=== PATIENT | female | born 1975 | race Caucasian/White ===

== ENCOUNTER 2016-08-12 08:07 | Day surgery (SDC) | payer MEDICARE, MEDICAID ==
[2016-08-12 09:06] LABS: PROTHROMBIN TIME 12.4 SEC (11.4-15.4)
[2016-08-12 09:07] LABS: PARTIAL THROMBOPLASTIN TIME 29.3 SEC (23.5-35.8)
[2016-08-12 13:08] VITALS: BP 135/79
== END 2016-08-12 13:00 | disposition home or self-care (01) ==
LOC: RAD 08:07
PROVIDERS: ATTEND Specialist
PROC: B01BYZZ Fluoroscopy of Spinal Cord using Other Contrast (ICD-10-PCS; principal; 2016-08-12)
DX: M54.16 Radiculopathy, lumbar region (principal); E87.5 Hyperkalemia; G47.30 Sleep apnea, unspecified; Z79.01 Long term (current) use of anticoagulants
CPT/HCPCS: 36415; 72132; 72265; 85610; 85730

== ENCOUNTER 2016-09-23 20:59 | Emergency (ER) | payer MEDICARE, MEDICAID ==
--- NOTE | 2016-09-23 21:26 | ER Document Report ---
ED Medical Screen (RME) - General Chief Complaint: Headache >24 hrs old Stated Complaint: HEADACHE AND NAUSEA Time seen by provider: 21:22 Mode of Arrival: Ambulatory Information source: Patient Notes: 41-year-old female presents to ED for severe pressure in her head for 2 weeks more severe for the last 4 days worse and worse each week. Nausea has been for 3 1/2 weeks. Stiff necks and life sensitive has been this week and had a spine myelogram done in 08/12/2016. She takes ibuprofen for her headaches that she took her last about 1:00; 600 mg. She states her doctor told her to come to the emergency room 2 days ago. Patient denies any fevers during this time. He states sometimes she feels cold and hot but she has not registered a fever yet. I have greeted and performed a rapid initial assessment of this patient. A comprehensive ED assessment and evaluation of the patient, analysis of test results and completion of medical decision making process will be conducted by an additional ED providers. TRAVEL OUTSIDE OF THE [place] IN LAST 30 DAYS: No - Related Data Allergies/Adverse Reactions: No Known Allergies Allergy (Unverified 01/20/16 00:35) Past Medical History - Past Medical History Cardiac Medical History: Denies: Hx Coronary Artery Disease, Hx Heart Attack, Hx Hypertension Pulmonary Medical History: Reports: Hx Pneumonia Denies: Hx Asthma, Hx Bronchitis, Hx COPD Neurological Medical History: Denies: Hx Cerebrovascular Accident, Hx Seizures Musculoskeltal Medical History: Reports Hx Arthritis - Spine and knees, Reports Hx Musculoskeletal Trauma Past Surgical History: Reports: Hx Orthopedic Surgery - Immunizations Hx Diphtheria, Pertussis, Tetanus Vaccination: Yes Physical Exam - Vital signs Vitals: Temp Pulse Resp BP Pulse Ox 99.1 F 85 16 146/86 H 98 09/23/16 21:08 09/23/16 21:08 09/23/16 21:08 09/23/16 21:08 09/23/16 21:08 Course - Vital Signs Vital signs: Temp Pulse Resp BP Pulse Ox 99.1 F 85 16 146/86 H 98 09/23/16 21:08 09/23/16 21:08 09/23/16 21:08 09/23/16 21:08 09/23/16 21:08
[2016-09-23] MEDS ORDERED: ONDANSETRON 4 MG TAB.RAPDIS PO ONE (21:27)
--- NOTE | 2016-09-23 23:39 | ER Document Report ---
ED Headache - General Mode of Arrival: Ambulatory Information source: Patient TRAVEL OUTSIDE OF THE [place] IN LAST 30 DAYS: No - HPI Patient complains to provider of: "Migraine" Patient reports: Frequent migraines, Hx chronic headaches Onset: Other - see narrative Timing: Still present Quality of pain: Pressure Associated symptoms: Nausea/vomiting Exacerbated by: Light Similar symptoms previously: Yes Recently seen / treated by doctor: Yes <SELMA MORALES - Last Filed: 09/23/16 23:40> <ADAIR GRANT - Last Filed: 09/24/16 01:14> - General Chief Complaint: Headache >24 hrs old Stated Complaint: HEADACHE AND NAUSEA Notes: Patient is a 41-year-old male that presents to the emergency department today with complaints of a headache. Patient has a history of migraine headaches but states she feels like this one is different because it is "her whole head". Patient states she has been having headaches for several days however it has been "bad for 4 days". Patient complains of photophobia as well for the last 3 days. Patient states she has been nauseated for one month. Patient also complains of neck pain. Patient denies any vomiting, fevers, chills, throat pain , sinus congestion, or abdominal pain. (SELMA MORALES) - Related Data Allergies/Adverse Reactions: No Known Allergies Allergy (Unverified 01/20/16 00:35) Past Medical History - General Information source: Patient - Social History Smoking Status: Current Every Day Smoker Cigarette use (# per day): No Chew tobacco use (# tins/day): No Frequency of alcohol use: Rare Drug Abuse: None Lives with: Family Family History: Reviewed & Not Pertinent Patient has suicidal ideation: No Patient has homicidal ideation: No Pulmonary Medical History: Reports: Hx Pneumonia Musculoskeltal Medical History: Reports Hx Arthritis - Spine and knees, Reports Hx Musculoskeletal Trauma Past Surgical History: Reports: Hx Orthopedic Surgery - Immunizations Hx Diphtheria, Pertussis, Tetanus Vaccination: Yes <SELMA MORALES - Last Filed: 09/23/16 23:40> Review of Systems - Review of Systems Constitutional: denies: Chills, Fever EENT: denies: Nose congestion, Throat pain Cardiovascular: No symptoms reported Respiratory: No symptoms reported Gastrointestinal: See HPI, Nausea. denies: Abdominal pain, Vomiting Genitourinary: No symptoms reported Female Genitourinary: No symptoms reported Musculoskeletal: See HPI, Neck pain Skin: No symptoms reported Hematologic/Lymphatic: No symptoms reported Neurological/Psychological: See HPI, Headaches - photophobia -: Yes All other systems reviewed and negative <SELMA MORALES - Last Filed: 09/23/16 23:40> Physical Exam - General General appearance: Appears well, Alert In distress: None - HEENT Head: Normocephalic, Atraumatic Eyes: Normal Conjunctiva: Normal - Respiratory Respiratory status: No respiratory distress Chest status: Nontender Breath sounds: Normal Chest palpation: Normal - Cardiovascular Rhythm: Regular Heart sounds: Normal auscultation Murmur: No - Abdominal Inspection: Normal Distension: No distension Bowel sounds: Normal Tenderness: Nontender - Extremities General upper extremity: Normal inspection, Normal ROM, Normal strength. No: Edema General lower extremity: Normal inspection, Normal ROM, Normal strength. No: Edema - Neurological Neuro grossly intact: Yes Cognition: Normal Orientation: AAOx4 [place] Coma Scale Eye Opening: Spontaneous [place] Coma Scale Verbal: Oriented [place] Coma Scale Motor: Obeys Commands Ralph Coma Scale Total: 15 Speech: Normal Cranial nerves: Normal Motor strength normal: LUE, RUE, LLE, RLE Additional motor exam normals: Equal senior game developer Sensory: Normal Knee - Reflex grade: 2 = Normal - Psychological Associated symptoms: Normal affect, Normal mood - Skin Skin Temperature: Warm Skin Moisture: Dry Skin Color: Normal <SELMA MORALES - Last Filed: 09/23/16 23:40> <ADAIR GRANT - Last Filed: 09/24/16 01:14> - Vital signs Vitals: Temp Pulse Resp BP Pulse Ox 99.1 F 85 16 146/86 H 98 09/23/16 21:08 09/23/16 21:08 09/23/16 21:08 09/23/16 21:08 09/23/16 21:08 - Neurological Notes: complains of photophobia, covering head with pillow (SELMA MORALES) Course <SELMA MORALES - Last Filed: 09/23/16 23:40> - Diagnostic Test Radiology reviewed: Reports reviewed - CT head: No acute. <ADAIR GRANT - Last Filed: 09/24/16 01:14> - Re-evaluation Re-evalutation: 09/24/16 01:10 Patient presents with one month of nausea and mild headache which is become worse in the last 3 days. Patient indicates the headache is a gripping sensation around her entire head and into the back of her neck. The patient reports that she patient has history of migraines and says this is not like her usual migraines. She is afebrile nontoxic appearing. No signs of meningismus. Well-hydrated. No focal neurologic abnormalities. Patient requesting CT imaging because this is not like any headaches that she has had in the past. Although I believe that this will be low yield will comply with patient's request. We will treat with headache cocktail and plan for discharge with follow-up PCP. (ADAIR GRANT) - Vital Signs Vital signs: Temp Pulse Resp BP Pulse Ox 99.1 F 85 16 146/86 H 98 09/23/16 21:08 09/23/16 21:08 09/23/16 21:08 09/23/16 21:08 09/23/16 21:08 Discharge <SELMA MORALES - Last Filed: 09/23/16 23:40> <ADAIR GRANT - Last Filed: 09/24/16 01:14> - Discharge Clinical Impression: Headache Qualifiers: Headache type: unspecified Headache chronicity pattern: chronic headache Intractability: not intractable Qualified Code(s): R51 - Headache Condition: Stable Disposition: HOME, SELF-CARE Instructions: Headache ([facility]), Migraine Headache ([facility]) Additional Instructions: Drink plenty fluids to stay well hydrated. Follow-up the primary provider. Return for fevers, vomiting so not to keep down fluids, or other worsening or concerning symptoms. Scribe Attestation: 09/24/16 01:12 I personally performed the services described in the documentation, reviewed and edited the documentation which was dictated to the scribe in my presence, and it accurately records my words and actions. (ADAIR GRANT) Scribe Documentation - Scribe Written by Norma:: Norma Ag, 09/24/2016 0010 acting as scribe for :: Valera <SELMA MORALES - Last Filed: 09/23/16 23:40>
[2016-09-23] MEDS ORDERED: METOCLOPRAMIDE HCL INJ/PF 10 MG/2 ML SDV IV ONE (23:40)
[2016-09-23] MEDS ORDERED: DIPHENHYDRAMINE HCL 50 MG/ML VIAL IV ONE (23:40)
[2016-09-23] MEDS ORDERED: DEXAMETHASONE SOD PHOSPHATE INJ 4 MG/1 ML VIAL IV ONE (23:40)
[2016-09-23] MEDS ORDERED: NORMAL SALINE 1000 ML 1,000 ML IV ONE (23:44)
[2016-09-24 00:24] LABS: APPEARANCE,URINE SLIGHTLY-CLOUDY; BILIRUBIN,URINE NEGATIVE (NEGATIVE); GLUCOSE, URINE NEGATIVE (NEGATIVE); KETONES,URINE NEGATIVE (NEGATIVE); LEUKOCYTE ESTERASE,URINE NEGATIVE (NEGATIVE); NITRITE,URINE NEGATIVE (NEGATIVE); PROTEIN,URINE NEGATIVE (NEGATIVE); URINE SPECIFIC GRAVITY 1.012; UROBILINOGEN,URINE NEGATIVE mg/dL (<2.0)
[2016-09-24 01:56] VITALS: BP 106/64
== END 2016-09-24 01:56 | disposition home or self-care (01) ==
LOC: ER 20:59
DX: R51 Headache (principal); R11.2 Nausea with vomiting, unspecified; H53.149 Visual discomfort, unspecified; M54.2 Cervicalgia; F17.200 Nicotine dependence, unspecified, uncomplicated
CPT/HCPCS: 99284; 96361; 96374; 96375; 81025; 81001; 70450; J1100; J1200; A9270; J2765; J7030; S0119

== ENCOUNTER → 2017-02-02 | Outpatient (CLI) | payer MEDICARE, MEDICAID ==
[2017-02-02 08:56] LABS: ABSOLUTE BASOPHILS # (AUTO) 0.1 10^3/uL (0.0-0.2); ABSOLUTE EOSINOPHILS # (AUTO) 0.1 10^3/uL (0.0-0.6); ABSOLUTE MONOCYTES (AUTO) 0.4 10^3/uL (0.1-1.4); ABSOLUTE NEUT (AUTO) 5.2 10^3/uL (1.7-8.2); BASOPHILS % (AUTO) 0.7 % (0-2); EOSINOPHILS % (AUTO) 1.3 % (0-6); HEMATOCRIT 40.6 % (36.0-47.0); HEMOGLOBIN 13.8 g/dL (12.0-15.5); HGB HCT DIFFERENCE 0.8; LYMPHOCYTES % (AUTO) 33.9 % (13-45); MEAN CORPUSCULAR HEMOGLOBIN 31.4 pg (27.0-33.4); MEAN CORPUSCULAR HGB CONC 34.1 g/dL (32.0-36.0); MEAN CORPUSCULAR VOLUME 92 fl (80-97); MONOCYTES % (AUTO) 4.4 % (3-13); RED BLOOD COUNT 4.41 10^6/uL (3.72-5.28); RED CELL DISTRIBUTION WIDTH 13.9 % (11.5-14.0); SEGMENTED NEUTROPHILS % (AUTO) 59.7 % (42-78); WHITE BLOOD COUNT 8.8 10^3/uL (4.0-10.5)
[2017-02-02 09:29] LABS: ALANINE AMINOTRANSFERASE 41 U/L (9-52); ALKALINE PHOSPHATASE 85 U/L (38-126); ANION GAP 10 (5-19); ASPARTATE AMINO TRANSFERASE 23 U/L (14-36); BILIRUBIN,DIRECT 0.3 mg/dL (0.0-0.4); BILIRUBIN,TOTAL 0.5 mg/dL (0.2-1.3); BLOOD UREA NITROGEN 11 mg/dL (7-20); CALCIUM 9.3 mg/dL (8.4-10.2); CARBON DIOXIDE 26 mmol/L (22-30); CHLORIDE 106 mmol/L (98-107); CHOLESTEROL 223.92 mg/dL (0-200); CREATININE RESULT 0.71 mg/dL (0.52-1.25); Direct HDL 30 mg/dL (>40); GLUCOSE 98 mg/dL (75-110); POTASSIUM 4.9 mmol/L (3.6-5.0); SODIUM 141.9 mmol/L (137-145); TOTAL PROTEIN 6.9 g/dL (6.3-8.2); TRIGLYCERIDES 214 mg/dL (<150)
[2017-02-02 09:41] LABS: DIRECT LDL 152 mg/dL (<100)
[2017-02-02 09:43] LABS: VLDL CHOLESTEROL 42.8 mg/dL (10-31)
[2017-02-03 15:39] LABS: A/G RATIO 1.2 (0.7-1.7); ALBUMIN 2 3.5 g/dL (2.9-4.4); ALPHA-1-GLOBULIN 2 0.2 g/dL (0.0-0.4); GAMMA GLOBULIN 0.8 g/dL (0.4-1.8); PROTEIN TOTAL SERUM 6.4 g/dL (6.0-8.5)
== END ==
LOC: OD 07:40
PROVIDERS: ATTEND Internal Medicine
DX: E78.5 Hyperlipidemia, unspecified (principal); I10 Essential (primary) hypertension; R63.4 Abnormal weight loss; Z79.899 Other long term (current) drug therapy
CPT/HCPCS: 36415; 80053; 80061; 84165; 84443; 85025

== ENCOUNTER → 2017-02-03 | Outpatient (CLI) | payer MEDICARE, MEDICAID ==
--- NOTE | 2017-02-03 09:37 | RADIOLOGY REPORT (SQ) ---
EXAM DESCRIPTION: U/S ABDOMEN LIMITED W/O DOP COMPLETED DATE/TIME: 02/03/2017 9:17 am REASON FOR STUDY: RUQ PAIN R19.01 RIGHT UPPER QUADRANT ABDOMINAL SWELLING, MASS AND LUM COMPARISON: None. TECHNIQUE: Dynamic and static grayscale images acquired of the right upper quadrant and recorded on PACS. Additional selected color Doppler and spectral images recorded. LIMITATIONS: Study limited due to acoustical interference from fat or from air in the bowel. FINDINGS: PANCREAS: Parts or all of the pancreas poorly seen secondary to acoustical interference fr om fat or from air in the bowel. LIVER: Echotexture is coarse with increased echogenicity consistent with fatty infiltration. No mass es. LIVER VASCULATURE: Normal directional flow of the main portal vein and hepatic veins. GALLBLADDER: Surgically absent. ULTRASOUND-DETECTED WEEKS'S SIGN: Not applicable. INTRAHEPATIC DUCTS AND COMMON DUCT: CBD and intrahepatic ducts normal caliber. No filling defects. INFERIOR VENA CAVA: Normal flow. AORTA: No aneurysm. RIGHT KIDNEY: Normal size. Normal echogenicity. No solid or suspicious masses. No hydronephrosis. No calcifications. PERITONEAL CAVITY AND RIGHT PLEURAL SPACE: No ascites or effusions. OTHER: No other significant finding. IMPRESSION: FATTY LIVER. PANCREAS PARTIALLY OR COMPLETELY OBSCURED. OTHERWISE NORMAL RIGHT UPPER AMARILYS DRANT ULTRASOUND. TECHNICAL DOCUMENTATION: JOB ID: [id number] [employer]- All Rights Reserved
== END ==
LOC: RAD 08:53
PROVIDERS: ATTEND Internal Medicine
DX: R19.01 Right upper quadrant abdominal swelling, mass and lump (principal); I10 Essential (primary) hypertension; E78.5 Hyperlipidemia, unspecified; R63.4 Abnormal weight loss; Z79.899 Other long term (current) drug therapy
CPT/HCPCS: 76705

== ENCOUNTER → 2017-02-09 | Outpatient (CLI) | payer MEDICARE, MEDICAID ==
--- NOTE | 2017-02-09 14:37 | RADIOLOGY REPORT (SQ) ---
EXAM DESCRIPTION: CT ABD/PELVIS WITH IV ORAL COMPLETED DATE/TIME: 02/09/2017 2:17 pm REASON FOR STUDY: ABDOMINAL PAIN R10.9 UNSPECIFIED ABDOMINAL PAIN COMPARISON: Ultrasound dated 02/03/2017 TECHNIQUE: CT scan of the abdomen and pelvis performed using helical scanning technique with dynamic intravenous contrast injection. No oral contrast. Images reviewed with lung, soft tissue, and bone windows. Reconstructed coronal and sagittal MPR images reviewed. Delayed images for evaluation of the urinary system also acquired. All images stored on PACS. All CT scanners at this facility use dose modulation, iterative reconstruction, and/or weight based d osing when appropriate to reduce radiation dose to as low as reasonably achievable (ALARA). [facility]: Dose Right [facility]: CareDose [facility]: Dose Right [facility]: Teradose 4D [facility]: [employer] CONTRAST TYPE AND DOSE: contrast/concentration: Isovue 370.00 mg/ml; Total Contrast Delivered: 90.0 ml; Total Saline Delivered: 70.0 ml RENAL FUNCTION: None required. The patient is less than 50 years old. RADIATION DOSE: Up-to-date CT equipment and radiation dose reduction techniques were employed. CTDIv ol: 9.7 - 11.2 mGy. DLP: 1077 mGy-cm.. LIMITATIONS: None. FINDINGS: LOWER CHEST: No significant findings. No nodules or infiltrates. LIVER: Liver demonstrates decreased attenuation consistent with fatty deposition. No focal liver les ions are identified. No intrahepatic biliary dilatation. The portal and hepatic veins are patent. SPLEEN: Normal size. No focal lesions. PANCREAS: No masses. No significant calcifications. No adjacent inflammation or peripancreatic fluid collections. Pancreatic duct not dilated. GALLBLADDER: Surgically absent. ADRENAL GLANDS: No significant masses or asymmetry. RIGHT KIDNEY AND URETER: No solid masses. No significant calcifications. No hydronephrosis or hyd roureter. LEFT KIDNEY AND URETER: No solid masses. No significant calcifications. No hydronephrosis or hydr oureter. AORTA AND VESSELS: No aneurysm. No dissection. Renal arteries, SMA, celiac without stenosis. RETROPERITONEUM: No retroperitoneal adenopathy, hemorrhage or masses. BOWEL AND PERITONEAL CAVITY: No masses or inflammatory changes. No free fluid or peritoneal masses. APPENDIX: Normal. PELVIS: No mass. No free fluid. Normal bladder. ABDOMINAL WALL: No masses. No hernias. BONES: No significant or acute findings. OTHER: No other significant finding. IMPRESSION: 1. No acute abnormality identified within the abdomen pelvis. 2. Hepatic steatosis. No focal liver lesions. TECHNICAL DOCUMENTATION: JOB ID: [id number] Quality ID # [id number]: Final reports with documentation of one or more dose reduction techniques (e.g., Au tomated exposure control, adjustment of the mA and/or kV according to patient size, use of iterative reconstruction technique) 2010 [employer]- All Rights Reserved
== END ==
LOC: RAD 11:43
PROVIDERS: ATTEND Family Medicine Geriatric Medicine
DX: R10.9 Unspecified abdominal pain (principal)
CPT/HCPCS: 74177

== ENCOUNTER → 2017-02-18 | Outpatient (CLI) | payer MEDICARE, MEDICAID ==
[2017-02-18 12:32] LABS: LIPASE 105.4 U/L (23-300)
== END ==
LOC: OD 11:25
PROVIDERS: ATTEND Family Medicine Geriatric Medicine
DX: R10.9 Unspecified abdominal pain (principal); Z79.899 Other long term (current) drug therapy
CPT/HCPCS: 36415; 82150; 83690

== ENCOUNTER 2017-08-09 14:37 | Emergency (ER) | payer MEDICARE, MEDICAID ==
--- NOTE | 2017-08-09 16:10 | ER Document Report ---
ED Medical Screen (RME) - General Chief Complaint: Vaginal Bleeding Stated Complaint: VAGINAL BLEEDING Time Seen by Provider: 08/09/17 15:57 Mode of Arrival: Ambulatory Information source: Patient Notes: Patient is a 42 year old female presenting to the emergency department complaining of heavy vaginal bleeding onset 4 days ago. Patient states that her last menstrual cycle was around 2016, stopped for 2 days and then came back. Patient states that she is bleeding through pads every 20 minutes. Patient states that she called her OB and they told her to come into the emergency department. Patient also complains of urinary frequency and abdominal cramps. Patient denies any recent intercourse. Patient states that she had a tubal ligation. TRAVEL OUTSIDE OF THE [place] IN LAST 30 DAYS: No - Related Data Allergies/Adverse Reactions: No Known Allergies Allergy (Verified 08/09/17 14:44) Past Medical History - General Information source: Patient - Social History Chew tobacco use (# tins/day): No Frequency of alcohol use: Rare Drug Abuse: None - Past Medical History Cardiac Medical History: Denies: Hx Coronary Artery Disease, Hx Heart Attack, Hx Hypertension Pulmonary Medical History: Reports: Hx Pneumonia Denies: Hx Asthma, Hx Bronchitis, Hx COPD Neurological Medical History: Denies: Hx Cerebrovascular Accident, Hx Seizures Renal/ Medical History: Denies: Hx Peritoneal Dialysis Musculoskeltal Medical History: Reports Hx Arthritis - Spine and knees, Reports Hx Musculoskeletal Trauma Past Surgical History: Reports: Hx Orthopedic Surgery - 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 - Immunizations Hx Diphtheria, Pertussis, Tetanus Vaccination: Yes Review of Systems - Review of Systems Constitutional: No symptoms reported EENT: No symptoms reported Cardiovascular: No symptoms reported Respiratory: No symptoms reported Gastrointestinal: No symptoms reported Genitourinary: See HPI, Frequency Female Genitourinary: See HPI, Vaginal bleeding Musculoskeletal: No symptoms reported Skin: No symptoms reported Hematologic/Lymphatic: No symptoms reported Neurological/Psychological: No symptoms reported -: Yes All other systems reviewed and negative Physical Exam - Vital signs Vitals: Temp Pulse Resp BP Pulse Ox 98.6 F 107 H 18 139/89 H 95 08/09/17 14:48 08/09/17 14:48 08/09/17 14:48 08/09/17 14:48 08/09/17 14:48 - Notes Notes: GENERAL: Alert, interacts well. No acute distress. HEAD: Normocephalic, atraumatic. EYES: Pupils equal, round, and reactive to light. Extraocular movements intact. ENT: Oral mucosa moist, tongue midline. NECK: Full range of motion. Supple. Trachea midline. LUNGS: Clear to auscultation bilaterally, no wheezes, rales, or rhonchi. No respiratory distress. HEART: Regular rate and rhythm. No murmurs, gallops, or rubs. ABDOMEN: Soft, non-tender. Non-distended. EXTREMITIES: Moves all 4 extremities spontaneously. NEUROLOGICAL: Alert and oriented x3. Normal speech. PSYCH: Normal affect, normal mood. SKIN: Warm, dry, normal turgor. No rashes or lesions noted. Course - Vital Signs Vital signs: Temp Pulse Resp BP Pulse Ox 98.6 F 107 H 18 139/89 H 95 08/09/17 14:48 08/09/17 14:48 08/09/17 14:48 08/09/17 14:48 08/09/17 14:48 Scribe Documentation - Scribe Written by Norma:: Norma Campbell, 08/09/2017 16:23 acting as scribe for :: Roger
[2017-08-09 16:59] LABS: APPEARANCE,URINE SLIGHTLY-CLOUDY; BILIRUBIN,URINE NEGATIVE (NEGATIVE); COLOR,URINE AMBER; GLUCOSE, URINE NEGATIVE (NEGATIVE); KETONES,URINE NEGATIVE (NEGATIVE); LEUKOCYTE ESTERASE,URINE NEGATIVE (NEGATIVE); NITRITE,URINE NEGATIVE (NEGATIVE); PROTEIN,URINE 100 mg/dL (NEGATIVE); URINE SPECIFIC GRAVITY 1.031
[2017-08-09] MEDS ORDERED: ACETAMINOPHEN 325 MG TABLET PO ONE (17:26)
[2017-08-09 17:27] LABS: ABSOLUTE BASOPHILS # (AUTO) 0.2 10^3/uL (0.0-0.2); ABSOLUTE EOSINOPHILS # (AUTO) 0.1 10^3/uL (0.0-0.6); ABSOLUTE LYMPHOCYTES (AUTO) 3.8 10^3/uL (0.5-4.7); ABSOLUTE MONOCYTES (AUTO) 0.6 10^3/uL (0.1-1.4); ABSOLUTE NEUT (AUTO) 7.8 10^3/uL (1.7-8.2); BASOPHILS % (AUTO) 1.4 % (0-2); EOSINOPHILS % (AUTO) 0.9 % (0-6); HEMATOCRIT 40.1 % (36.0-47.0); HEMOGLOBIN 13.7 g/dL (12.0-15.5); LYMPHOCYTES % (AUTO) 30.5 % (13-45); MEAN CORPUSCULAR HEMOGLOBIN 30.4 pg (27.0-33.4); MEAN CORPUSCULAR HGB CONC 34.1 g/dL (32.0-36.0); MEAN CORPUSCULAR VOLUME 89 fl (80-97); MONOCYTES % (AUTO) 4.8 % (3-13); PLATELET COUNT 294 10^3/uL (150-450); RED CELL DISTRIBUTION WIDTH 14.5 % (11.5-14.0); SEGMENTED NEUTROPHILS % (AUTO) 62.4 % (42-78); TOTAL CELLS COUNTED % (AUTO) 100 %; WHITE BLOOD COUNT 12.5 10^3/uL (4.0-10.5)
[2017-08-09 17:42] LABS: ALANINE AMINOTRANSFERASE 26 U/L (9-52); ALKALINE PHOSPHATASE 73 U/L (38-126); ANION GAP 7 (5-19); ASPARTATE AMINO TRANSFERASE 19 U/L (14-36); BILIRUBIN,DIRECT 0.2 mg/dL (0.0-0.4); BILIRUBIN,TOTAL 0.3 mg/dL (0.2-1.3); BLOOD UREA NITROGEN 14 mg/dL (7-20); CALCIUM 9.1 mg/dL (8.4-10.2); CARBON DIOXIDE 25 mmol/L (22-30); CHLORIDE 104 mmol/L (98-107); GLUCOSE 71 mg/dL (75-110); POTASSIUM 4.2 mmol/L (3.6-5.0); SODIUM 136.1 mmol/L (137-145); TOTAL PROTEIN 6.8 g/dL (6.3-8.2)
--- NOTE | 2017-08-09 19:47 | ER Document Report ---
ED General - General Chief Complaint: Vaginal Bleeding Stated Complaint: VAGINAL BLEEDING Time Seen by Provider: 08/09/17 15:57 Mode of Arrival: Ambulatory Notes: Patient is a 42-year-old female without past medical history who presents with several days of heavy vaginal bleeding. Patient states that she is bleeding through approximate 1 pad every 1-2 hours. She states that she contacted her OB [facility] office and was referred to the emergency department. She denies any history of similar symptoms in the past. She notes that she has irregular menstrual cycles but has never bled to this degree. She does note an associated dull, cramping, intermittent lower abdominal pain. Nothing improves or worsens her symptoms. She denies any abdominal trauma. No fever or constitutional symptoms. No lightheadedness or syncope. TRAVEL OUTSIDE OF THE [place] IN LAST 30 DAYS: No - Related Data Allergies/Adverse Reactions: No Known Allergies Allergy (Verified 08/09/17 14:44) Past Medical History - General Information source: Patient - Social History Smoking Status: Current Every Day Smoker Chew tobacco use (# tins/day): No Frequency of alcohol use: Rare Drug Abuse: None Lives with: Alone Family History: Reviewed & Not Pertinent Patient has suicidal ideation: No Patient has homicidal ideation: No - Past Medical History Cardiac Medical History: Denies: Hx Coronary Artery Disease, Hx Heart Attack, Hx Hypertension Pulmonary Medical History: Reports: Hx Pneumonia Denies: Hx Asthma, Hx Bronchitis, Hx COPD Neurological Medical History: Denies: Hx Cerebrovascular Accident, Hx Seizures Renal/ Medical History: Denies: Hx Peritoneal Dialysis Musculoskeltal Medical History: Reports Hx Arthritis - Spine and knees, Reports Hx Musculoskeletal Trauma Past Surgical History: Reports: Hx Orthopedic Surgery - 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 HENT: Negative for sore throat. Eyes: Negative for visual changes. Cardiovascular: Negative for chest pain. Respiratory: Negative for shortness of breath. Gastrointestinal: Negative for abdominal pain, vomiting or diarrhea. Genitourinary: Positive for vaginal bleeding Musculoskeletal: Negative for back pain. Skin: Negative for rash. Neurological: Negative for headaches, weakness or numbness. 10 point ROS negative except as marked above and in HPI. Physical Exam - Vital signs Vitals: Temp Pulse Resp BP Pulse Ox 98.6 F 107 H 18 139/89 H 95 08/09/17 14:48 08/09/17 14:48 08/09/17 14:48 08/09/17 14:48 08/09/17 14:48 Interpretation: Tachycardic Notes: PHYSICAL EXAMINATION: GENERAL: Well-appearing, well-nourished and in no acute distress. HEAD: Atraumatic, normocephalic. EYES: Pupils equal round and reactive to light, extraocular movements intact, sclera anicteric, conjunctiva are normal. ENT: nares patent, oropharynx clear without exudates. Moist mucous membranes. NECK: Normal range of motion, supple without lymphadenopathy LUNGS: Breath sounds clear to auscultation bilaterally and equal. No wheezes rales or rhonchi. HEART: Regular rate and rhythm without murmurs ABDOMEN: Soft, nontender, normoactive bowel sounds. No guarding, no rebound. No masses appreciated. EXTREMITIES: Normal range of motion, no pitting or edema. No cyanosis. NEUROLOGICAL: No focal neurological deficits. Moves all extremities spontaneously and on command. PSYCH: Normal mood, normal affect. SKIN: Warm, Dry, normal turgor, no rashes or lesions noted. Course - Re-evaluation Re-evalutation: 08/09/17 19:46 Presentation is most consistent with dysfunctional uterine bleeding and otherwise well-appearing patient. Her hemoglobin was within normal limits. She is not . No tachycardia or hypotension. Examination is otherwise unremarkable. She denies bleeding through more than 2 pads an hour at any point in time. No indication for ultrasound at this time based on benign exam, vitals and laboratories. Transvaginal ultrasound obtained at patient's request. Awaiting results. 08/09/17 21:41 Transvaginal ultrasound is unremarkable without any evidence of a mass. Patient will be started on oral control pills to help discontinue the bleeding. She has been encouraged to follow-up with [facility]. At this time will discharge with return precautions and follow-up recommendations. Verbal discharge instructions given a the bedside and opportunity for questions given. Medication warnings reviewed. Patient is in agreement with this plan and has verbalized understanding of return precautions and the need for primary care follow-up in the next 24-72 hours. - Vital Signs Vital signs: Temp Pulse Resp BP Pulse Ox 98.4 F 91 18 120/84 96 08/09/17 20:41 08/09/17 22:39 08/09/17 22:39 08/09/17 22:39 08/09/17 22:39 - Laboratory Result Diagrams: 08/09/17 17:13 08/09/17 17:13 Laboratory results interpreted by me: 08/09/17 08/09/17 08/09/17 16:40 17:13 17:13 WBC 12.5 H RDW 14.5 H Sodium 136.1 L Glucose 71 L Urine Protein 100 H Urine Blood LARGE H Urine Urobilinogen 2.0 H - Diagnostic Test Radiology reviewed: Reports reviewed Discharge - Discharge Clinical Impression: Dysfunctional uterine bleeding, Lower abdominal pain Condition: Good Disposition: HOME, SELF-CARE Additional Instructions: You were seen today for dysfunctional uterine bleeding. This is when you have vaginal bleeding and abdominal cramping off of your normal menstrual cycle. You have been started on control pills to help regulate your cycle and control your symptoms. You need to follow-up with [facility] or your primary care physician the next 1-3 days. Return immediately if you worsening pain, you began bleeding through more than 2 pads per hour for more than 3 hours, you pass out, have persistent vomiting, develop a fever greater than 100.4F, or any other symptoms that are concerning to you. Prescriptions: Norgestimate-Ethinyl Estradiol [Sprintec 28 Day Tablet] 1 tab PO ASDIR PRN #2 packet PRN Reason:
--- NOTE | 2017-08-09 21:15 | RADIOLOGY REPORT (SQ) ---
EXAM DESCRIPTION: U/S NON OB PEL TV W/DOPPLER COMPLETED DATE/TIME: 08/09/2017 8:49 pm REASON FOR STUDY: dysfunctional uterine bleeding COMPARISON: None. TECHNIQUE: Dynamic and static grayscale images acquired of the pelvis via transvaginal approach and recorded on PACS. Additional selected color Doppler and spectral images recorded. LIMITATIONS: None. FINDINGS: UTERUS: Contour normal. No mass. ENDOMETRIAL STRIPE: No focal or generalized thickening. No masses. CERVIX: No nabothian cysts. RIGHT OVARY: Ovary not visualized. LEFT OVARY: Ovary not visualized. FREE FLUID: None noted. OTHER: No other significant finding. MEASUREMENTS: UTERUS: 8 x 5 x 7 cm ENDOMETRIAL STRIPE: 5 mm RIGHT OVARY: Not visualized. LEFT OVARY: Not visualized. IMPRESSION: 1. Normal appearance of the uterus and endometrium and cervix. 2. Ovaries not seen. TECHNICAL DOCUMENTATION: JOB ID: [id number] [employer]- All Rights Reserved
[2017-08-09] MEDS ORDERED: ONDANSETRON ODT 4 MG TAB (6 TAB/ER DISP) PO PRN (21:49)
[2017-08-09 22:41] VITALS: BP 120/84
== END 2017-08-09 22:39 | disposition home or self-care (01) ==
LOC: ER 14:37
DX: N93.8 Other specified abnormal uterine and vaginal bleeding (principal); R10.30 Lower abdominal pain, unspecified; R00.0 Tachycardia, unspecified; F17.200 Nicotine dependence, unspecified, uncomplicated
CPT/HCPCS: 99284; 36415; 84703; 85025; 80053; 81001; 76830; 93976; A9270

== ENCOUNTER 2017-11-02 18:28 | Emergency (ER) | payer MEDICARE, MEDICAID ==
--- NOTE | 2017-11-02 19:24 | ER Document Report ---
ED Medical Screen (RME) - General Chief Complaint: Shortness Of Breath Stated Complaint: SWELLING Time Seen by Provider: 11/02/17 19:20 Notes: Patient complains of worsening fatigue, weakness, edema, and shortness of breath. TRAVEL OUTSIDE OF THE [place] IN LAST 30 DAYS: No - Related Data Allergies/Adverse Reactions: No Known Allergies Allergy (Verified 11/02/17 19:03) Past Medical History - Social History Chew tobacco use (# tins/day): No Frequency of alcohol use: Rare - Past Medical History Cardiac Medical History: Denies: Hx Coronary Artery Disease, Hx Heart Attack, Hx Hypertension Pulmonary Medical History: Reports: Hx Pneumonia Denies: Hx Asthma, Hx Bronchitis, Hx COPD Neurological Medical History: Denies: Hx Cerebrovascular Accident, Hx Seizures Renal/ Medical History: Denies: Hx Peritoneal Dialysis Musculoskeltal Medical History: Reports Hx Arthritis - Spine and knees, Reports Hx Musculoskeletal Trauma Past Surgical History: Reports: Hx Orthopedic Surgery - 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
[2017-11-02 20:07] LABS: ABSOLUTE BASOPHILS # (AUTO) 0.1 10^3/uL (0.0-0.2); ABSOLUTE EOSINOPHILS # (AUTO) 0.1 10^3/uL (0.0-0.6); ABSOLUTE LYMPHOCYTES (AUTO) 3.1 10^3/uL (0.5-4.7); ABSOLUTE MONOCYTES (AUTO) 0.5 10^3/uL (0.1-1.4); ABSOLUTE NEUT (AUTO) 7.8 10^3/uL (1.7-8.2); EOSINOPHILS % (AUTO) 1.2 % (0-6); HEMATOCRIT 39.7 % (36.0-47.0); HEMOGLOBIN 13.6 g/dL (12.0-15.5); LYMPHOCYTES % (AUTO) 26.9 % (13-45); MEAN CORPUSCULAR HEMOGLOBIN 30.1 pg (27.0-33.4); MEAN CORPUSCULAR HGB CONC 34.3 g/dL (32.0-36.0); MEAN CORPUSCULAR VOLUME 88 fl (80-97); MONOCYTES % (AUTO) 4.3 % (3-13); PLATELET COUNT 350 10^3/uL (150-450); RED BLOOD COUNT 4.51 10^6/uL (3.72-5.28); RED CELL DISTRIBUTION WIDTH 14.8 % (11.5-14.0); SEGMENTED NEUTROPHILS % (AUTO) 66.6 % (42-78); TOTAL CELLS COUNTED % (AUTO) 100 %; WHITE BLOOD COUNT 11.7 10^3/uL (4.0-10.5)
[2017-11-02 20:24] LABS: APPEARANCE,URINE CLOUDY; BILIRUBIN,URINE SMALL (NEGATIVE); CALCIUM OXALATE CRYSTALS,URINE TOO NUMEROUS TO CNT /HPF; GLUCOSE, URINE NEGATIVE (NEGATIVE); KETONES,URINE TRACE mg/dL (NEGATIVE); LEUKOCYTE ESTERASE,URINE TRACE (NEGATIVE); NITRITE,URINE NEGATIVE (NEGATIVE); PROTEIN,URINE NEGATIVE (NEGATIVE); URINE SPECIFIC GRAVITY 1.027
--- NOTE | 2017-11-02 20:25 | RADIOLOGY REPORT (SQ) ---
EXAM DESCRIPTION: CHEST 2 VIEWS COMPLETED DATE/TIME: 11/02/2017 8:03 pm REASON FOR STUDY: sob COMPARISON: None. TECHNIQUE: Frontal and lateral radiographic views of the chest acquired. NUMBER OF VIEWS: Two view. LIMITATIONS: None. FINDINGS: LUNGS AND PLEURA: No opacities, masses or pneumothorax. No pleural effusion. MEDIASTINUM AND HILAR STRUCTURES: No masses or contour abnormalities. HEART AND VASCULAR STRUCTURES: Heart normal size. No evidence for failure. BONES: No acute findings. HARDWARE: Epidural spinal leads in place. OTHER: No other significant finding. IMPRESSION: NO SIGNIFICANT RADIOGRAPHIC FINDING IN THE CHEST. TECHNICAL DOCUMENTATION: JOB ID: [id number] [employer]- All Rights Reserved Reading location - IP/workstation name: [email or web address]
[2017-11-02 20:30] LABS: ALANINE AMINOTRANSFERASE 34 U/L (9-52); ALBUMIN 4.1 g/dL (3.5-5.0); ALKALINE PHOSPHATASE 77 U/L (38-126); ANION GAP 11 (5-19); ASPARTATE AMINO TRANSFERASE 22 U/L (14-36); BILIRUBIN,DIRECT 0.3 mg/dL (0.0-0.4); BILIRUBIN,TOTAL 0.3 mg/dL (0.2-1.3); BLOOD UREA NITROGEN 9 mg/dL (7-20); CALCIUM 9.6 mg/dL (8.4-10.2); CARBON DIOXIDE 28 mmol/L (22-30); CHLORIDE 101 mmol/L (98-107); GLUCOSE 92 mg/dL (75-110); POTASSIUM 4.2 mmol/L (3.6-5.0); SODIUM 139.5 mmol/L (137-145); TOTAL PROTEIN 7.1 g/dL (6.3-8.2)
[2017-11-02 20:32] LABS: COLOR,URINE YELLOW
[2017-11-02] MEDS ORDERED: FUROSEMIDE 40 MG TABLET PO ONE (22:18)
[2017-11-02 23:03] LABS: FREE T4 (FREE THYROXINE) 0.94 ng/dL (0.78-2.19)
--- NOTE | 2017-11-02 23:16 | ER Document Report ---
ED General - General Chief Complaint: Shortness Of Breath Stated Complaint: SWELLING Time Seen by Provider: 11/02/17 19:20 Notes: Patient is a 42-year-old female presents with complaints of edema into her lower extremities as well as just felt weak and will be short of breath at times. Patient says that she had similar symptoms in the past and was prescribed Lasix by her physician. She said that was over a year ago. She denies any chest pain. She denies any fevers. She denies any focal weakness or numbness. She she is a smoker. She does not take control. She does take chronic pain medicine for chronic back pain as well as Lyrica due to neuropathy into her feet and legs. She says she does not wear compression hose because of the neuropathy in her feet. She denies a history of thyroid issues. She denies any recent surgeries. TRAVEL OUTSIDE OF THE [place] IN LAST 30 DAYS: No - Related Data Allergies/Adverse Reactions: No Known Allergies Allergy (Verified 11/02/17 19:03) Past Medical History - Social History Smoking Status: Current Every Day Smoker Chew tobacco use (# tins/day): No Frequency of alcohol use: Rare Drug Abuse: None Family History: Reviewed & Not Pertinent Patient has suicidal ideation: No Patient has homicidal ideation: No - Past Medical History Cardiac Medical History: Denies: Hx Coronary Artery Disease, Hx Heart Attack, Hx Hypertension Pulmonary Medical History: Reports: Hx Pneumonia Denies: Hx Asthma, Hx Bronchitis, Hx COPD Neurological Medical History: Denies: Hx Cerebrovascular Accident, Hx Seizures Renal/ Medical History: Denies: Hx Peritoneal Dialysis Musculoskeltal Medical History: Reports Hx Arthritis - Spine and knees, Reports Hx Musculoskeletal Trauma Past Surgical History: Reports: Hx Orthopedic Surgery - 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 Denies recent illness. EENT: Denies eye, ear, throat, or mouth pain or symptoms. Denies nasal or sinus congestion. CARDIOVASCULAR: Denies chest pain. RESPIRATORY: Denies cough, cold, or chest congestion. Denies shortness of breath, difficulty breathing, or wheezing. GASTROINTESTINAL: Denies abdominal pain. Denies nausea, vomiting, or diarrhea. Denies constipation. Last BM: GENITOURINARY: Denies difficulty urinating, painful urination, burning, frequency, or blood in urine. MUSCULOSKELETAL: Pain in feet with edema. SKIN: Denies rash or skin lesions. NEUROLOGICAL: Denies altered mental status or loss of consciousness. Denies headache. Denies weakness or paralysis or loss of use of either side. Denies problems with gait or speech. Denies sensory or motor loss. ALL OTHER SYSTEMS REVIEWED AND NEGATIVE. Physical Exam - Vital signs Vitals: Temp Pulse Resp BP Pulse Ox 98.7 F 103 H 14 139/84 H 96 11/02/17 18:39 11/02/17 18:39 11/02/17 18:39 11/02/17 18:39 11/02/17 18:39 - Notes Notes: General Appearance: Well nourished, alert, cooperative, no acute distress, mild obvious discomfort. Vitals: reviewed, See vital signs table. Head: no swelling or tenderness to the head Eyes: PERRL, EOMI, Conjuctiva clear Mouth: No decreasd moisture Neck: Supple, no neck tenderness, No thyromegaly Lungs: No wheezing, No rales, No rhonci, No accessory muscle use, good air exchange bilaterally. Heart: Normal rate, Regular rythm, No murmur, no rub Abdomen: Normal BS, soft, No rigidity, No abdominal tenderness, No guarding, no rebound, no abdominal masses, no organomegaly Extremities: strength 5/5 in all extremities, good pulses in all extremities, no swelling or tenderness in the extremities, large amount of pitting pedal edema that is sequestered to the feet. She does not have much edema beyond the feet. It appears very gravity dependent. Skin: warm, dry, appropriate color, no rash Neuro: speech clear, oriented x 3, normal affect, responds appropriately to questions. Course - Re-evaluation Re-evalutation: 11/02/17 23:53 Patient looks well. Feel patient safe to be discharged home. I do not suspect DVT as patient denies any risk factors for DVT and all her swelling and edema is in the feet themselves. She does not have pain into the remainder of her legs. Her edema is equal bilaterally in both feet. This seems more consistent with gravity dependent edema. She says she cannot wear compression stockings because of her neuropathy. She has been on Lasix in the past. Will place her back on Lasix and talked her length about the importance of keeping her feet elevated as often as possible. Her TSH was just slightly elevated. Her free T4 is normal. Informed her she should have her TSH rechecked by her primary care doctor next week when she follows up. Encouraged her return to ER if she has chest pain, difficulty breathing, worsening leg edema, or she feels unwell. Patient agrees with plan will be discharged home. Dictation of this chart was performed using voice recognition software; therefore, there may be some unintended grammatical errors. - Vital Signs Vital signs: Temp Pulse Resp BP Pulse Ox 98.7 F 91 19 127/83 H 100 11/02/17 18:39 11/02/17 23:11 11/02/17 23:11 11/02/17 23:11 11/02/17 23:11 - Laboratory Result Diagrams: 11/02/17 19:40 11/02/17 19:40 Laboratory results interpreted by me: 11/02/17 11/02/17 11/02/17 19:40 19:40 19:40 WBC 11.7 H RDW 14.8 H TSH 5.60 H Urine Ketones TRACE H Urine Bilirubin SMALL H Urine Urobilinogen 4.0 H Ur Leukocyte Esterase TRACE H Discharge - Discharge Clinical Impression: Pedal edema Condition: Good Disposition: HOME, SELF-CARE Additional Instructions: Please keep your legs elevated as often as possible to help prevent worsening edema in your feet. please follow up closely with your doctor in 5-7 days for reevaluation. Your TSH level was just mildly elevated, but your free T4 was normal. Please have your primary care doctor recheck your TSH. Return to the ER immediately if you develop chest pain, difficulty breathing, worsening leg swelling, or feel unwell. Prescriptions: Furosemide [Lasix 20 mg Tablet] 20 mg PO BID #20 tablet
[2017-11-02 23:17] LABS: THYROID STIMULATING HORMONE 5.6 uIU/mL (0.47-4.68)
[2017-11-03 00:03] VITALS: BP 127/79
--- NOTE | 2017-11-03 07:56 | EKG REPORT ---
SEVERITY:- NORMAL ECG - SINUS RHYTHM : Confirmed by: Philipp Harrison MD 03-Nov-2017 07:55:30
== END 2017-11-03 00:03 | disposition home or self-care (01) ==
LOC: ER 18:28
DX: R60.0 Localized edema (principal); G57.93 Unspecified mononeuropathy of bilateral lower limbs; R94.6 Abnormal results of thyroid function studies; R53.1 Weakness; R06.02 Shortness of breath; G62.9 Polyneuropathy, unspecified; G89.29 Other chronic pain; F17.200 Nicotine dependence, unspecified, uncomplicated; Z79.899 Other long term (current) drug therapy
CPT/HCPCS: 93005; 99285; 36415; 84439; 84443; 85025; 81025; 80053; 81001; 84484; 83880; 71046; 93010; A9270

== ENCOUNTER 2017-12-28 19:21 | Inpatient (IN) | payer MEDICARE, MEDICAID ==
[2017-12-28] MEDS ORDERED: NORMAL SALINE 1000 ML 1,000 ML IV ONE (20:27)
[2017-12-28] MEDS ORDERED: METHYLPREDNISOLONE INJ 125 MG/2 ML SDV IV ONE (20:27)
[2017-12-28] MEDS ORDERED: KETOROLAC TROMETHAMINE INJ/PF 30 MG/1 ML SDV IV ONE (20:27)
[2017-12-28] MEDS ORDERED: CEFTRIAXONE 1 GM/D5W RTU 1 GM/50 ML RTUPB IV ONE (20:28)
--- NOTE | 2017-12-28 20:28 | ER Document Report ---
ED General <PEGGY GALLAGHER - Last Filed: 12/29/17 03:15> - General Mode of Arrival: Ambulatory Information source: Patient TRAVEL OUTSIDE OF THE [place] IN LAST 30 DAYS: No <DONATO HORNER - Last Filed: 12/29/17 22:10> - General Chief Complaint: Sore Throat Stated Complaint: SORE THROAT Time Seen by Provider: 12/28/17 20:04 Notes: Patient is a 42 year old female with chronic back pain, depression was sent to the emergency department from urgent care for low oxygen saturation. Patient states she went to urgent care for worsening throat pain onset 2 days ago. She was diagnosed with strep throat and given a dose and prescription of 875 Amoxicilin. At bedside patient states she has been extremely drowsy today, stating she could fall asleep anywhere. She states she took 2 tablets of 30mg Oxycodone for her chronic back pain around 1400 further stating Oxycodone does not normally make her drowsy. She also complains of headaches, fevers, and decreased fluid intake due to pain. She denies any shortness of breath. Patient does not use any O2 at home. At bedside patient is currently on 2L of nasal cannula. Patient is currently prescribed 125 tablets of 15 mg Oxycodone. (DONATO HORNER) - Related Data Allergies/Adverse Reactions: No Known Allergies Allergy (Verified 12/29/17 08:43) Past Medical History - General Information source: Patient - Social History Smoking Status: Current Every Day Smoker Cigarette use (# per day): Yes - 1/2 a pack a day Chew tobacco use (# tins/day): No Frequency of alcohol use: Rare Drug Abuse: None Family History: Reviewed & Not Pertinent Patient has suicidal ideation: No Patient has homicidal ideation: No Pulmonary Medical History: Reports: Hx Pneumonia Musculoskeltal Medical History: Reports Hx Arthritis - Spine and knees, Reports Hx Musculoskeletal Trauma Past Surgical History: Reports: Hx Orthopedic Surgery - 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 denies: Short of breath Gastrointestinal: See HPI, Poor fluid intake Genitourinary: No symptoms reported Female Genitourinary: No symptoms reported Musculoskeletal: No symptoms reported Skin: No symptoms reported Hematologic/Lymphatic: No symptoms reported Neurological/Psychological: See HPI, Headaches -: Yes All other systems reviewed and negative <EVENSDONATO - Last Filed: 12/29/17 22:10> Physical Exam - General General appearance: Alert, Other - Appears drowsy In distress: None - HEENT Head: Normocephalic, Atraumatic Eyes: Normal Conjunctiva: Normal Extraocular movements intact: Yes Pupils: PERRL Pharynx: Erythema, Uvular edema Neck: Normal - Respiratory Respiratory status: No respiratory distress Chest status: Nontender Breath sounds: Normal Chest palpation: Normal - Cardiovascular Rhythm: Regular Heart sounds: Normal auscultation Murmur: No Friction rub: No Gallop: None auscultated - Abdominal Inspection: Normal Distension: No distension Bowel sounds: Normal Tenderness: Nontender - Back Back: Normal - Extremities General upper extremity: Normal ROM General lower extremity: Normal ROM - Neurological Neuro grossly intact: Yes Cognition: Normal Orientation: AAOx4 Rainier Coma Scale Eye Opening: Spontaneous Ralph Coma Scale Verbal: Oriented Rainier Coma Scale Motor: Obeys Commands Ralph Coma Scale Total: 15 Speech: Normal - Psychological Associated symptoms: Normal affect, Normal mood - Skin Skin Temperature: Warm Skin Moisture: Dry Skin Color: Other - First-degree sunburn across the chest. <DONATO HORNER - Last Filed: 12/29/17 22:10> - Vital signs Vitals: Temp Pulse Resp BP Pulse Ox 100.6 F H 98 20 133/72 H 90 L 12/28/17 19:40 12/28/17 19:40 12/28/17 19:40 12/28/17 19:40 12/28/17 19:40 Course - Laboratory Result Diagrams: 12/28/17 21:15 12/28/17 21:15 - Diagnostic Test Radiology reviewed: Reports reviewed - CTA chest does not show pulmonary emboli , but shows a right-sided lung pneumonia pattern. - Consults Dr. Kline Time consulted: 03:10 Consulted provider: will come to ER <PEGGY GALLAGHER - Last Filed: 12/29/17 03:15> - Laboratory Result Diagrams: 12/29/17 06:36 12/29/17 06:36 <DONATO HORNER - Last Filed: 12/29/17 22:10> - Re-evaluation Re-evalutation: 12/28/17 22:01 At this time the patient states she feels much better, she feels more awake. She states that her breathing feels completely normal her. Her room air pulse ox is 90% at this time. I will obtain an arterial blood gas to at least have a baseline for this patient. (PEGGY GALLAGHER) - Vital Signs Vital signs: Temp Pulse Resp BP Pulse Ox 98.3 F 94 17 118/52 L 97 12/29/17 19:30 12/29/17 19:50 12/29/17 19:50 12/29/17 19:30 12/29/17 19:50 - Laboratory Laboratory results interpreted by me: 12/28/17 12/28/17 12/28/17 21:15 21:15 21:15 WBC 16.8 H RDW 16.1 H Seg Neutrophils % 82.1 H Absolute Neutrophils 13.8 H D-Dimer 1.48 H ABG pO2 ABG HCO3 ABG Total CO2 ABG O2 Saturation Carbon Dioxide 31 H Direct Bilirubin 0.6 H AST 72 H ALT 53 H 12/28/17 12/29/17 23:25 01:10 WBC RDW Seg Neutrophils % Absolute Neutrophils D-Dimer ABG pO2 72.9 L 67.4 L ABG HCO3 27.1 H ABG Total CO2 28.5 H 27.0 H ABG O2 Saturation 93.8 L Carbon Dioxide Direct Bilirubin AST ALT Critical Care Note - Critical Care Note Total time excluding time spent on procedures (mins): 40 <PEGGY GALLAGHER - Last Filed: 12/29/17 03:15> Discharge - Discharge Admitting Provider: Hospitalist Unit Admitted: Medical Floor <PEGGY GALLAGHER - Last Filed: 12/29/17 03:15> <DONATO HORNER - Last Filed: 12/29/17 22:10> - Discharge Clinical Impression: Hypoxemia, Strep throat Pneumonia Qualifiers: Pneumonia type: due to unspecified organism Laterality: right Lung location: unspecified part of lung Qualified Code(s): J18.9 - Pneumonia, unspecified organism Leukocytosis Qualifiers: Leukocytosis type: unspecified Qualified Code(s): D72.829 - Elevated white blood cell count, unspecified Fever Qualifiers: Fever type: unspecified Qualified Code(s): R50.9 - Fever, unspecified COPD (chronic obstructive pulmonary disease) Qualifiers: COPD type: unspecified COPD Qualified Code(s): J44.9 - Chronic obstructive pulmonary disease, unspecified Chronic low back pain Qualifiers: Back pain laterality: unspecified Sciatica presence: unspecified whether sciatica present Qualified Code(s): M54.5 - Low back pain Condition: Stable Disposition: ADMITTED INPATIENT Scribe Attestation: 12/28/17 21:16 I personally performed the services described in the documentation, reviewed and edited the documentation which was dictated to the scribe in my presence, and it accurately records my words and actions. (PEGGY GALLAGHER) Scribe Documentation - Scribe Written by Scribe:: Norma Campbell, 12/28/2017 20:47 acting as scribe for :: Krunal <DONATO HORNER - Last Filed: 12/29/17 22:10>
[2017-12-28 21:33] LABS: ABSOLUTE BASOPHILS # (AUTO) 0.1 10^3/uL (0.0-0.2); ABSOLUTE EOSINOPHILS # (AUTO) 0.1 10^3/uL (0.0-0.6); ABSOLUTE LYMPHOCYTES (AUTO) 2.2 10^3/uL (0.5-4.7); ABSOLUTE MONOCYTES (AUTO) 0.7 10^3/uL (0.1-1.4); ABSOLUTE NEUT (AUTO) 13.8 10^3/uL (1.7-8.2); BASOPHILS % (AUTO) 0.4 % (0-2); EOSINOPHILS % (AUTO) 0.4 % (0-6); HEMATOCRIT 37.3 % (36.0-47.0); HEMOGLOBIN 12.9 g/dL (12.0-15.5); MEAN CORPUSCULAR HEMOGLOBIN 30.5 pg (27.0-33.4); MEAN CORPUSCULAR HGB CONC 34.6 g/dL (32.0-36.0); MEAN CORPUSCULAR VOLUME 88 fl (80-97); MONOCYTES % (AUTO) 4.1 % (3-13); PLATELET COUNT 298 10^3/uL (150-450); RED BLOOD COUNT 4.24 10^6/uL (3.72-5.28); RED CELL DISTRIBUTION WIDTH 16.1 % (11.5-14.0); SEGMENTED NEUTROPHILS % (AUTO) 82.1 % (42-78); TOTAL CELLS COUNTED % (AUTO) 100 %; WHITE BLOOD COUNT 16.8 10^3/uL (4.0-10.5)
[2017-12-28 21:44] LABS: ALANINE AMINOTRANSFERASE 53 U/L (9-52); ALBUMIN 4.2 g/dL (3.5-5.0); ALKALINE PHOSPHATASE 111 U/L (38-126); ANION GAP 9 (5-19); ASPARTATE AMINO TRANSFERASE 72 U/L (14-36); BILIRUBIN,DIRECT 0.6 mg/dL (0.0-0.4); BILIRUBIN,TOTAL 0.9 mg/dL (0.2-1.3); BLOOD UREA NITROGEN 15 mg/dL (7-20); CALCIUM 8.9 mg/dL (8.4-10.2); CARBON DIOXIDE 31 mmol/L (22-30); CHLORIDE 100 mmol/L (98-107); GLUCOSE 106 mg/dL (75-110); POTASSIUM 4.3 mmol/L (3.6-5.0); SODIUM 139.7 mmol/L (137-145); TOTAL PROTEIN 7.9 g/dL (6.3-8.2)
--- NOTE | 2017-12-28 21:57 | RADIOLOGY REPORT (SQ) ---
EXAM DESCRIPTION: CHEST SINGLE VIEW COMPLETED DATE/TIME: 12/28/2017 9:45 pm REASON FOR STUDY: Low O2 saturation COMPARISON: 11/02/2017 EXAM PARAMETERS: NUMBER OF VIEWS: One view. TECHNIQUE: Single frontal radiographic view of the chest acquired. RADIATION DOSE: NA LIMITATIONS: None. FINDINGS: LUNGS AND PLEURA: Mild chronic interstitial changes are suggested. There is no infiltrate or effusion. There is no mass. MEDIASTINUM AND HILAR STRUCTURES: No masses. Contour normal. HEART AND VASCULAR STRUCTURES: Heart normal in size. Normal vasculature. BONES: No acute findings. HARDWARE: Neurostimulator electrodes. OTHER: No other significant finding. IMPRESSION: Mild chronic lung changes. TECHNICAL DOCUMENTATION: JOB ID: [id number] [employer]- All Rights Reserved Reading location - IP/workstation name: [email or web address]
[2017-12-28] MEDS ORDERED: IPRATROPIUM/ALBUTEROL 0.5-2.5 MG/3 ML AMPUL NEB ONE (22:42)
[2017-12-28 23:49] LABS: ARTERIAL BLOOD H2CO3 1.34 mmol/L (1.05-1.35); ARTERIAL BLOOD HCO3 27.1 mmol/L (20-26); ARTERIAL BLOOD O2 SATURATION 94.6 % (94-98); ARTERIAL BLOOD PCO2 44.6 mmHg (35-45); ARTERIAL BLOOD PO2 72.9 mmHg (80-100); ARTERIAL BLOOD TOTAL CO2 28.5 mmol/L (21-25)
[2017-12-28 23:51] LABS: ARTERIAL BLOOD FIO2 28%
[2017-12-29 01:34] LABS: ARTERIAL BLOOD BASE EXCESS 1.3 mmol/L; ARTERIAL BLOOD FIO2 ROOM AIR; ARTERIAL BLOOD H2CO3 1.22 mmol/L (1.05-1.35); ARTERIAL BLOOD HCO3 25.8 mmol/L (20-26); ARTERIAL BLOOD O2 SATURATION 93.8 % (94-98); ARTERIAL BLOOD PCO2 40.5 mmHg (35-45); ARTERIAL BLOOD PH 7.42 (7.35-7.45); ARTERIAL BLOOD PO2 67.4 mmHg (80-100)
--- NOTE | 2017-12-29 02:48 | RADIOLOGY REPORT (SQ) ---
EXAM DESCRIPTION: CT CHEST ANGIOGRAPHY WITHOUT THEN WITH IV CONTRAST COMPLETED DATE/TME: 12/29/2017 01:35 CLINICAL HISTORY: 42 years Female, Hypoxemia Comparison: None. Technique: IV contrast. Coronal and sagittal reformat. 3d reconstruction. This exam was performed according to our departmental dose-optimization program, which includes automated exposure control, adjustment of the mA and/or kV according to patient size and/or use of iterative reconstruction technique.[facility]: Dose Right [facility]: CareDose [facility]: Dose Right [facility]: Teradose 4D [facility]: [employer] LIMITATIONS: None Findings: No pulmonary embolus. No right ventricular strain. Right upper abdominal clips, TENS leads, moderate patchy right perihilar, right middle lobe, and right upper lobe opacities, moderate right hilar lymphadenopathy, mild-moderate mediastinal lymphadenopathy, small right basilar dependent atelectasis or scar and mild disc desiccation. Inferior neck, axillae, mediastinum, lungs, airway, lymphatics, heart, vasculature, upper abdomen, and musculoskeleton appear unremarkable. Impression: Right-sided pneumonia pattern.
[2017-12-29] MEDS ORDERED: IPRATROPIUM/ALBUTEROL 0.5-2.5 MG/3 ML AMPUL NEB ONE (02:58)
[2017-12-29] MEDS ORDERED: CHLORPHENIRAMINE MALEATE 4 MG TABLET PO ONE (03:12)
[2017-12-29] MEDS ORDERED: IPRATROPIUM/ALBUTEROL 0.5-2.5 MG/3 ML AMPUL NEB PRN (03:12)
[2017-12-29] MEDS ORDERED: HYDRALAZINE HCL INJ/PF 20 MG/1 ML SDV IV PRN (03:12)
[2017-12-29] MEDS ORDERED: GUAIFENESIN SYRP 200 MG/10 ML UDC PO PRN (03:12)
[2017-12-29] MEDS ORDERED: ACETAMINOPHEN 325 MG TABLET PO PRN (03:12)
[2017-12-29] MEDS ORDERED: NORMAL SALINE 1000 ML 1,000 ML IV SCH (03:15)
[2017-12-29] MEDS ORDERED: AZITHROMYCIN 500 MG in DEXTROSE 5%-WATER 250 ML IV ONE (04:00)
--- NOTE | 2017-12-29 06:08 | PDOC H&P ---
History of Present Illness Admission Date/PCP: 12/29/17 03:20 Patient complains of: Sore throat and fever History of Present Illness: ANNY GARCIA is a 42 year old female with a past medical history of chronic back pain status post spinal stimulator, anxiety depression, tobacco, GERD, obstructive sleep apnea and obesity. Patient presents with 48 hours of sore throat prompting her to seek evaluation by primary care where she was diagnosed with strep pharyngitis. She developed shortness of breath, cough and a fever of 100.6 prompting her to seek evaluation emergency room where she is found to have a right-sided infiltrate on CT, leukocytosis of 18,000 and persistent fever. She started on empiric antibiotics and referred the hospitalist for admission. She admits to recent uncontrolled GERD, no rhinorrhea no infectious contacts no previous episode. 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 Social History Information Source: Patient Smoking Status: Current Every Day Smoker Frequency of Alcohol Use: None Drugs: None - Advance Directive Resuscitation Status: Full Code Family History Family History: CAD, Malignancy - Breast cancer Parental Family History Reviewed: Yes Children Family History Reviewed: Yes Sibling(s) Family History Reviewed.: Yes Medication/Allergy Home Medications: Furosemide [Lasix 20 mg Tablet] 20 mg PO BID #20 tablet 11/02/17 Lisdexamfetamine Dimesylate [Vyvanse] 20 mg PO BID 11/02/17 Oxycodone HCl 15 mg PO QID 11/02/17 Pregabalin [Lyrica] 150 mg PO TID 11/02/17 Simvastatin [Simvastatin] 20 mg PO QHS 11/02/17 Allergies/Adverse Reactions: No Known Allergies Allergy (Verified 11/02/17 19:03) Review of Systems Constitutional: ABSENT: chills, fever(s), headache(s), weight gain, weight loss Eyes: ABSENT: visual disturbances Ears: ABSENT: hearing changes Cardiovascular: ABSENT: chest pain, dyspnea on exertion, edema, orthropnea, palpitations Respiratory: ABSENT: cough, hemoptysis Gastrointestinal: ABSENT: abdominal pain, constipation, diarrhea, hematemesis, hematochezia, nausea, vomiting Genitourinary: ABSENT: dysuria, hematuria Musculoskeletal: ABSENT: joint swelling Integumentary: ABSENT: rash, wounds Neurological: ABSENT: abnormal gait, abnormal speech, confusion, dizziness, focal weakness, syncope Psychiatric: ABSENT: anxiety, depression, homidical ideation, suicidal ideation Endocrine: ABSENT: cold intolerance, heat intolerance, polydipsia, polyuria Hematologic/Lymphatic: ABSENT: easy bleeding, easy bruising Physical Exam Vital Signs: Temp Pulse Resp BP Pulse Ox 97.8 F 90 22 H 118/50 L 99 12/29/17 05:51 12/29/17 05:51 12/29/17 05:51 12/29/17 05:51 12/29/17 05:51 Intake & Output 12/27/17 12/28/17 12/29/17 11:59 11:59 11:59 Weight 90.7 kg General appearance: PRESENT: cooperative, mild distress, obese. ABSENT: disheveled Head exam: PRESENT: atraumatic, normocephalic Eye exam: PRESENT: conjunctiva pink, EOMI, PERRLA. ABSENT: scleral icterus Ear exam: PRESENT: normal external ear exam Mouth exam: PRESENT: moist, tongue midline Neck exam: PRESENT: lymphadenopathy - Tender, 2 cm left-sided submandibular. ABSENT: carotid bruit, JVD, thyromegaly Respiratory exam: PRESENT: accessory muscle use, crackles, decreased breath sounds, rales, retraction, tachypnea Cardiovascular exam: PRESENT: RRR. ABSENT: diastolic murmur, rubs, systolic murmur Pulses: PRESENT: normal dorsalis pedis pul Vascular exam: PRESENT: normal capillary refill GI/Abdominal exam: PRESENT: normal bowel sounds, soft. ABSENT: distended, guarding, mass, organolmegaly, rebound, tenderness Rectal exam: PRESENT: deferred Extremities exam: PRESENT: full ROM. ABSENT: calf tenderness, clubbing, pedal edema Neurological exam: PRESENT: alert, awake, oriented to person, oriented to place , oriented to time, oriented to situation, CN II-XII grossly intact. ABSENT: motor sensory deficit Psychiatric exam: PRESENT: appropriate affect, normal mood. ABSENT: homicidal ideation, suicidal ideation Skin exam: PRESENT: dry, intact, warm. ABSENT: cyanosis, rash Results Impressions: Chest X-Ray 12/28/17 20:33 IMPRESSION: Mild chronic lung changes. Assessment & Plan - Diagnosis (1) Pneumonia Qualifiers: Pneumonia type: due to unspecified organism Laterality: right Lung location: unspecified part of lung Qualified Code(s): J18.9 - Pneumonia, unspecified organism Is this a current diagnosis for this admission?: Yes Plan: Empiric antibiotics initiated, possibly secondary to uncontrolled GERD. Follow- up CBC and blood culture (2) Obstructive sleep apnea Is this a current diagnosis for this admission?: Yes Plan: BiPAP support (3) Chronic pain Is this a current diagnosis for this admission?: Yes Plan: Avoid narcotics given obstructive sleep apnea and COPD (4) COPD (chronic obstructive pulmonary disease) Qualifiers: COPD type: unspecified COPD Qualified Code(s): J44.9 - Chronic obstructive pulmonary disease, unspecified Is this a current diagnosis for this admission?: Yes Plan: Albuterol and Atrovent, incentive spirometry and PEEP (5) Strep throat Is this a current diagnosis for this admission?: Yes Plan: Empiric antibiotics initiated, follow-up culture. - Time Time Spent: 30 to 50 Minutes - Inpatient Certification Medical Necessity: Need Close Monitoring Due to Risk of Patient Decompensation
[2017-12-29] MEDS ORDERED: NICOTINE 7 MG/24 HR PATCH.TD24 TD ONE (06:15)
[2017-12-29] MEDS ORDERED: AZITHROMYCIN INJ 500 MG VIAL IV ONE (06:23)
[2017-12-29] MEDS ORDERED: CHLORPHENIRAMINE MALEATE 4 MG TABLET ONE (06:23)
[2017-12-29 06:47] LABS: ABSOLUTE BASOPHILS # (AUTO) 0.1 10^3/uL (0.0-0.2); ABSOLUTE MONOCYTES (AUTO) 0.1 10^3/uL (0.1-1.4); ABSOLUTE NEUT (AUTO) 10.5 10^3/uL (1.7-8.2); BASOPHILS % (AUTO) 0.5 % (0-2); HEMATOCRIT 33.3 % (36.0-47.0); HEMOGLOBIN 11.5 g/dL (12.0-15.5); LYMPHOCYTES % (AUTO) 8.5 % (13-45); MEAN CORPUSCULAR HEMOGLOBIN 30.2 pg (27.0-33.4); MEAN CORPUSCULAR HGB CONC 34.5 g/dL (32.0-36.0); MEAN CORPUSCULAR VOLUME 88 fl (80-97); MONOCYTES % (AUTO) 1.1 % (3-13); PLATELET COUNT 248 10^3/uL (150-450); RED CELL DISTRIBUTION WIDTH 15.7 % (11.5-14.0); SEGMENTED NEUTROPHILS % (AUTO) 89.9 % (42-78); TOTAL CELLS COUNTED % (AUTO) 100 %; WHITE BLOOD COUNT 11.7 10^3/uL (4.0-10.5)
[2017-12-29] MEDS: KETOROLAC TROMETHAMINE INJ/PF 30 MG/1 ML SDV IV PRN ×2 (06:52→17:34)
[2017-12-29] MEDS: GABAPENTIN 300 MG CAPSULE PO SCH ×3 (06:52→22:01)
[2017-12-29] MEDS: HEPARIN SOD (PORCINE) 5,000 UNIT/ML 1 ML SYRINGE SUBCUT SCH ×3 (06:52→22:01)
[2017-12-29] MEDS: LANSOPRAZOLE 30 MG TAB.RAP.DR PO SCH ×2 (06:55→17:34)
[2017-12-29 07:12] LABS: ANION GAP 9 (5-19); BLOOD UREA NITROGEN 14 mg/dL (7-20); CALCIUM 8.5 mg/dL (8.4-10.2); CARBON DIOXIDE 27 mmol/L (22-30); CHLORIDE 104 mmol/L (98-107); GLUCOSE 200 mg/dL (75-110); POTASSIUM 4.1 mmol/L (3.6-5.0); SODIUM 140.3 mmol/L (137-145)
[2017-12-29] MEDS: IPRATROPIUM/ALBUTEROL 0.5-2.5 MG/3 ML AMPUL NEB SCH ×3 (08:49→19:50)
[2017-12-29] MEDS ORDERED: CEFTRIAXONE 1 GM/D5W RTU 1 GM/50 ML RTUPB IV SCH (10:00)
[2017-12-29] MEDS ORDERED: OXYCODONE HCL IR 5 MG TABLET PO PRN (11:53)
[2017-12-29] MEDS ORDERED: FUROSEMIDE 20 MG TABLET PO ONE (14:15)
--- NOTE | 2017-12-29 16:37 | Progress Note ---
Provider Note Provider Note: This is a 42 years old female patient with past medical history of chronic back pain status post spinal stimulator anxiety depression tobacco dependence and gastroesophageal reflux disease presented with chief complaint of fever and cough and patient found to have pneumonia and she is on appropriate antibiotic treatment. I seen the patient and I will assume the attending role.
[2017-12-29] MEDS ORDERED: PHENOL/SODIUM PHENOLATE 100 SPRAY/177 ML BOTTLE PO PRN (17:42)
[2017-12-29] MEDS ORDERED: DEXTROAMPHETAMINE PO SCH (18:00)
[2017-12-29] MEDS ORDERED: CEFTRIAXONE SODIUM 1,000 MG in DEXTROSE 5%-WATER 50 ML IV SCH (18:00)
[2017-12-29] MEDS ORDERED: AMPHETAMINE PO SCH (18:00)
[2017-12-29] MEDS ORDERED: (PENDING PHARMACY ID) (Gabapentin Enacarbil [Horizant] 600 MG) PO SCH (22:00)
[2017-12-29] MEDS ORDERED: SIMVASTATIN 10 MG TABLET PO SCH (22:00)
[2017-12-29] MEDS: DULOXETINE HCL 30 MG CAPSULE.DR PO SCH (22:01)
[2017-12-30] MEDS: IPRATROPIUM/ALBUTEROL 0.5-2.5 MG/3 ML AMPUL NEB SCH ×2 (02:13→08:46)
[2017-12-30 04:54] LABS: HEMATOCRIT 31.6 % (36.0-47.0); HEMOGLOBIN 10.7 g/dL (12.0-15.5); MEAN CORPUSCULAR HEMOGLOBIN 29.5 pg (27.0-33.4); MEAN CORPUSCULAR HGB CONC 33.7 g/dL (32.0-36.0); MEAN CORPUSCULAR VOLUME 87 fl (80-97); PLATELET COUNT 296 10^3/uL (150-450); RED BLOOD COUNT 3.62 10^6/uL (3.72-5.28); RED CELL DISTRIBUTION WIDTH 15.9 % (11.5-14.0); WHITE BLOOD COUNT 13.8 10^3/uL (4.0-10.5)
[2017-12-30 05:07] LABS: ANION GAP 8 (5-19); BLOOD UREA NITROGEN 16 mg/dL (7-20); CALCIUM 8.1 mg/dL (8.4-10.2); CARBON DIOXIDE 27 mmol/L (22-30); CHLORIDE 111 mmol/L (98-107); GLUCOSE 108 mg/dL (75-110); POTASSIUM 4.3 mmol/L (3.6-5.0); SODIUM 145.5 mmol/L (137-145)
[2017-12-30 05:29] LABS: ABSOLUTE LYMPHOCYTES# (MANUAL) 4.8 10^3/uL (0.5-4.7); ABSOLUTE MONOCYTES # (MANUAL) 0.6 10^3/uL (0.1-1.4); ABSOLUTE NEUTROPHILS# (MANUAL) 8.4 10^3/uL (1.7-8.2); BASOPHILS % (MANUAL) 0 % (0-2); EOSINOPHILS % (MANUAL) 0 % (0-6); LYMPHOCYTES % (MANUAL) 35 % (13-45); MONOCYTES % (MANUAL) 4 % (3-13); SEGMENTED NEUTROPHILS % (MAN) 61 % (42-78); TOTAL CELLS COUNTED 100
[2017-12-30 05:30] LABS: ANISOCYTOSIS SLIGHT; PLATELET COMMENT ADEQUATE
[2017-12-30] MEDS: LANSOPRAZOLE 30 MG TAB.RAP.DR PO SCH (05:59)
[2017-12-30] MEDS: GABAPENTIN 300 MG CAPSULE PO SCH (05:59)
[2017-12-30] MEDS: HEPARIN SOD (PORCINE) 5,000 UNIT/ML 1 ML SYRINGE SUBCUT SCH (05:59)
[2017-12-30] MEDS ORDERED: FUROSEMIDE 20 MG TABLET PO SCH (08:00)
[2017-12-30] MEDS: DULOXETINE HCL 30 MG CAPSULE.DR PO SCH (09:16)
[2017-12-30] MEDS ORDERED: NICOTINE 7 MG/24 HR PATCH.TD24 TD SCH (10:00)
[2017-12-30] MEDS ORDERED: AZITHROMYCIN 500 MG in DEXTROSE 5%-WATER 250 ML IV SCH (10:00)
--- NOTE | 2017-12-30 11:25 | PDOC DISCHARGE SUMMARY ---
General - Admit/Disc Date/PCP Admission Date/Primary Care Provider: 12/29/17 03:20 Discharge Date: 12/30/17 - Discharge Diagnosis (1) COPD (chronic obstructive pulmonary disease) Is this a current diagnosis for this admission?: Yes (2) Obstructive sleep apnea Is this a current diagnosis for this admission?: Yes (3) Pneumonia Is this a current diagnosis for this admission?: Yes - Additional Information Resuscitation Status: Full Code Home Medications: Dextroamphetamine/Amphetamine [Adderall 30 mg Tablet] 15 mg PO BID 12/29/17 Duloxetine HCl [Cymbalta] 60 mg PO Q12 12/29/17 Furosemide [Lasix 20 mg Tablet] 20 mg PO QAM 12/29/17 Gabapentin Enacarbil [Horizant] 600 mg PO Q12 12/29/17 Oxycodone HCl 15 mg PO Q5HP PRN 12/29/17 Simvastatin [Zocor 20 mg Tablet] 20 mg PO QHS 12/29/17 History of Present Illness History of Present Illness: ANNY GARCIA is a 42 year old female with a past medical history of chronic back pain status post spinal stimulator, anxiety depression, tobacco, GERD, obstructive sleep apnea and obesity. Patient presents with 48 hours of sore throat prompting her to seek evaluation by primary care where she was diagnosed with strep pharyngitis. She developed shortness of breath, cough and a fever of 100.6 prompting her to seek evaluation emergency room where she is found to have a right-sided infiltrate on CT, leukocytosis of 18,000 and persistent fever. She started on empiric antibiotics and referred the hospitalist for admission. She admits to recent uncontrolled GERD, no rhinorrhea no infectious contacts no previous episode. Hospital Course Hospital Course: This is a 48 years old female patient admitted yesterday with a diagnosis of pneumonia patient has been on ceftriaxone and Zithromax. This morning patient insisted that she wanted to go home. I tried to convince her one more to stay 1 more day but she is adamant to leave. On examination patient is awake alert oriented she is not in pain or any form of distress. I will send her home with Levaquin 750 mg p.o. daily for additional 4 days. Patient also strongly advised to quit smoking. Physical Exam Vital Signs: Temp Pulse Resp BP Pulse Ox 97.9 F 88 16 139/72 H 96 12/30/17 08:02 12/30/17 08:46 12/30/17 08:46 12/30/17 08:02 12/30/17 08:46 Intake & Output 12/29/17 12/30/17 12/31/17 06:59 06:59 06:59 Intake Total 200 1654 Output Total 3 Balance 200 1651 Weight 90.7 kg 91.2 kg General appearance: PRESENT: no acute distress, well-developed, well-nourished Head exam: PRESENT: atraumatic, normocephalic Eye exam: PRESENT: conjunctiva pink, EOMI, PERRLA. ABSENT: scleral icterus Ear exam: PRESENT: normal external ear exam Mouth exam: PRESENT: moist, tongue midline Neck exam: ABSENT: carotid bruit, JVD, lymphadenopathy, thyromegaly Respiratory exam: PRESENT: clear to auscultation eddie. ABSENT: rales, rhonchi, wheezes Cardiovascular exam: PRESENT: RRR. ABSENT: diastolic murmur, rubs, systolic murmur Pulses: PRESENT: normal dorsalis pedis pul Vascular exam: PRESENT: normal capillary refill GI/Abdominal exam: PRESENT: normal bowel sounds, soft. ABSENT: distended, guarding, mass, organolmegaly, rebound, tenderness Rectal exam: PRESENT: deferred Extremities exam: PRESENT: full ROM. ABSENT: calf tenderness, clubbing, pedal edema Neurological exam: PRESENT: alert, awake, oriented to person, oriented to place , oriented to time, oriented to situation, CN II-XII grossly intact. ABSENT: motor sensory deficit Psychiatric exam: PRESENT: appropriate affect, normal mood. ABSENT: homicidal ideation, suicidal ideation Skin exam: PRESENT: dry, intact, warm. ABSENT: cyanosis, rash Results Laboratory Results: 12/30/17 03:50 12/30/17 03:50 12/30/17 12/30/17 03:50 03:50 WBC 13.8 H RBC 3.62 L Hgb 10.7 L Hct 31.6 L MCV 87 MCH 29.5 MCHC 33.7 RDW 15.9 H Plt Count 296 Seg Neutrophils % Not Reportable Lymphocytes % Not Reportable Monocytes % Not Reportable Eosinophils % Not Reportable Basophils % Not Reportable Absolute Neutrophils Not Reportable Absolute Lymphocytes Not Reportable Absolute Monocytes Not Reportable Absolute Eosinophils Not Reportable Absolute Basophils Not Reportable Sodium 145.5 H Potassium 4.3 Chloride 111 H Carbon Dioxide 27 Anion Gap 8 BUN 16 Creatinine 0.56 Est GFR ( Amer) > 60 Est GFR (Non-Af Amer) > 60 Glucose 108 Calcium 8.1 L Impressions: Chest X-Ray 12/28/17 20:33 IMPRESSION: Mild chronic lung changes. Qualifiers - * PATIENT BEING DISCHARGED WITH ANY OF THE FOLLOWING DIAGNOSIS: No
[2017-12-30 12:09] VITALS: BP 118/50
== END 2017-12-30 13:10 | disposition home or self-care (01) | DRG 194 ==
LOC: ER 19:21 → EH 12-29 03:20 → 5 12-29 05:40
PROVIDERS: ADMIT Internal Medicine; ATTEND Internal Medicine
PROC: 5A09357 Assistance with Respiratory Ventilation, Less than 24 Consecutive Hours, Continuous Positive Airway Pressure (ICD-10-PCS; principal; 2017-12-29)
DX: J18.9 Pneumonia, unspecified organism (principal); J44.0 Chronic obstructive pulmonary disease with (acute) lower respiratory infection; J02.0 Streptococcal pharyngitis; J44.9 Chronic obstructive pulmonary disease, unspecified; G89.29 Other chronic pain; Z96.9 Presence of functional implant, unspecified; F41.9 Anxiety disorder, unspecified; F32.9 Major depressive disorder, single episode, unspecified; K21.9 Gastro-esophageal reflux disease without esophagitis; E66.9 Obesity, unspecified; G47.33 Obstructive sleep apnea (adult) (pediatric); D72.829 Elevated white blood cell count, unspecified; M13.862 Other specified arthritis, left knee; M13.861 Other specified arthritis, right knee; M13.88 Other specified arthritis, other site; F17.200 Nicotine dependence, unspecified, uncomplicated; Z79.899 Other long term (current) drug therapy
CPT/HCPCS: 36415; 36600; 71045; 71275; 80048; 80053; 82803; 84703; 85025; 85379; 94640; 94660; 94667; 94668; 94799; 96365; 96375; 99291; J0456; J0696; J1644; J1885; J2930; J3490; J7030; J7060; J7620

== ENCOUNTER 2018-04-13 17:06 | Emergency (ER) | payer MEDICARE, MEDICAID ==
[2018-04-13] MEDS ORDERED: ONDANSETRON HCL INJ/PF 4 MG/2 ML SDV IV ONE (17:53)
--- NOTE | 2018-04-13 17:53 | ER Document Report ---
ED Medical Screen (RME) - General Stated Complaint: BACK PAIN Time Seen by Provider: 04/13/18 17:44 Notes: Patient brought in by EMS with complaint of severe pain in her lower back. Says is so painful she cannot move. Began today. Has had 4 back surgeries in the past. Similar presentation in the past has been herniated disc. Has not lost control of bladder or bowels. Patient was given 100 mcg of fentanyl in route here by EMS.. Will order further pain medicines. TRAVEL OUTSIDE OF THE [place] IN LAST 30 DAYS: No - Related Data Allergies/Adverse Reactions: No Known Allergies Allergy (Verified 12/29/17 08:43) Past Medical History - Past Medical History Cardiac Medical History: Denies: Hx Coronary Artery Disease, Hx Heart Attack, Hx Hypertension Pulmonary Medical History: Reports: Hx COPD, Hx Pneumonia, Hx Sleep Apnea Denies: Hx Asthma, Hx Bronchitis Neurological Medical History: Denies: Hx Cerebrovascular Accident, Hx Seizures Renal/ Medical History: Denies: Hx Peritoneal Dialysis Musculoskeltal Medical History: Reports Hx Arthritis - Spine and knees, Reports Hx Musculoskeletal Trauma Psychiatric Medical History: Reports: Hx Depression Past Surgical History: Reports: Hx Orthopedic Surgery - 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 - Immunizations Hx Diphtheria, Pertussis, Tetanus Vaccination: Yes
[2018-04-13] MEDS ORDERED: HYDROMORPHONE HCL INJ/PF 2 MG/ML AMPULE IV ONE (17:54)
[2018-04-13] MEDS ORDERED: LIDOCAINE 5% (700 MG) TRANSDERMAL ADH..PATCH TP ONE (19:00)
[2018-04-13] MEDS ORDERED: KETOROLAC TROMETHAMINE INJ/PF 30 MG/1 ML SDV IV ONE (19:00)
[2018-04-13] MEDS ORDERED: DIAZEPAM INJ 10 MG/2 ML DISP.SYRIN IV ONE (19:00)
--- NOTE | 2018-04-13 19:04 | ER Document Report ---
ED General - General Chief Complaint: Back Pain Stated Complaint: BACK PAIN Time Seen by Provider: 04/13/18 17:44 Notes: Patient is a 43-year-old female with a past medical history of chronic low back pain, currently opiate dependent, for prior low back surgeries including a spinal nerve stimulator who presents with 36 hours of progressively worsening low back pain. She states that the pain started last evening as a spasming, cramping pain to her low back. States it is been getting progressively worse and after she woke up this morning she could hardly move. She took her normal pain medications without any relief. She states moving or bending worsens the pain. She denies any bowel or bladder incontinence or retention, lower extremely weakness or numbness. She has not contacted her pain management doctor primary doctor regarding today's concerns. He does state that she has been out in the yard "doing things I should not have been doing given my back pain" and believes that this may have triggered this episode. She is uncertain of whether or not she has had similar symptoms in the past. She denies fever or constitutional symptoms. TRAVEL OUTSIDE OF THE [place] IN LAST 30 DAYS: No - Related Data Allergies/Adverse Reactions: No Known Allergies Allergy (Verified 12/29/17 08:43) Past Medical History - General Information source: Patient - Social History Smoking Status: Current Every Day Smoker Frequency of alcohol use: Rare Drug Abuse: None Lives with: Family Family History: Reviewed & Not Pertinent Patient has suicidal ideation: No Patient has homicidal ideation: No - Past Medical History Cardiac Medical History: Denies: Hx Coronary Artery Disease, Hx Heart Attack, Hx Hypertension Pulmonary Medical History: Reports: Hx COPD, Hx Pneumonia, Hx Sleep Apnea Denies: Hx Asthma, Hx Bronchitis Neurological Medical History: Denies: Hx Cerebrovascular Accident, Hx Seizures Renal/ Medical History: Denies: Hx Peritoneal Dialysis Musculoskeletal Medical History: Reports Hx Arthritis - Spine and knees, Reports Hx Musculoskeletal Trauma Psychiatric Medical History: Reports: Hx Depression Past Surgical History: Reports: Hx Cholecystectomy, Hx Orthopedic Surgery - 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, Hx Tubal Ligation - Immunizations Hx Diphtheria, Pertussis, Tetanus Vaccination: Yes Review of Systems - Review of Systems Notes: Constitutional: Negative for fever. HENT: Negative for sore throat. Eyes: Negative for visual changes. Cardiovascular: Negative for chest pain. Respiratory: Negative for shortness of breath. Gastrointestinal: Negative for abdominal pain, vomiting or diarrhea. Genitourinary: Negative for dysuria. Musculoskeletal: Positive for low back pain Skin: Negative for rash. Neurological: Negative for headaches, weakness or numbness. 10 point ROS negative except as marked above and in HPI. Physical Exam - Vital signs Vitals: Temp Pulse BP Pulse Ox 98.4 F 104 H 139/100 H 96 04/13/18 17:54 04/13/18 17:54 04/13/18 17:54 04/13/18 17:54 Interpretation: Tachycardic - Resolved at the time my assessment Notes: PHYSICAL EXAMINATION: GENERAL: Appears to be in pain but no acute distress HEAD: Atraumatic, normocephalic. EYES: Pupils equal round and reactive to light, extraocular movements intact, sclera anicteric, conjunctiva are normal. ENT: nares patent, oropharynx clear without exudates. Moist mucous membranes. NECK: Normal range of motion, supple without lymphadenopathy LUNGS: Breath sounds clear to auscultation bilaterally and equal. No wheezes rales or rhonchi. HEART: Regular rate and rhythm without murmurs ABDOMEN: Soft, nontender, normoactive bowel sounds. No guarding, no rebound. No masses appreciated. EXTREMITIES: Normal range of motion, no pitting or edema. No cyanosis. Back: No focal midline spinal tenderness, step-offs or deformities. Diffuse pain on palpation of the paraspinous muscles in the low lumbar upper sacral spine NEUROLOGICAL: 5 out of 5 strength both distally and proximally bilateral lower extremities. Left foot drop which patient reports is chronic. 2+ patellar reflexes bilaterally. No clonus. Sensation grossly intact in the bilateral lower extremities. Patient is able to ambulate with some pain. PSYCH: Moderately anxious SKIN: Warm, Dry, normal turgor, no rashes or lesions noted. Course - Re-evaluation Re-evalutation: 04/13/18 19:02 Presentation of a well appearing patient complaining of acute on chronic back pain. No rapid progression of symptoms, systemic symptoms including fevers, chills, weight loss, history of recent bacterial infection, bilateral symptoms, numbness, weakness, difficulty walking, urinary retention or bowel incontinence , personal history of cancer, immunosuppression, diabetes, known AAA, or history of IV drug use. Exam is without point tenderness over vertebral bodies , pulsatile abdominal mass, and patient has symmetric and intact lower extremity strength with the exception of a left foot drop which is chronic, sensation, and reflexes without clonus. 2+ symmetric medial malleolar and dorsalis pedis pulses Patient states that something is different regarding her back pain relative to her chronic low back pain. A CT of the lumbar spine has been ordered, patient is unable to get an MRI due to her hardware. Patient is extremely anxious, does appear to be in pain although I have significant concern for a component of chronic pain given she does currently take oxycodone 60 mg daily and has frequent visits to the emergency department for uncontrolled low back pain over the last 3 years. I have emphasized the patient that we will work to ensure that there is no immediately life-threatening or spine threatening injury but that I will be unlikely to get her pain completely under control today and that she will need to follow with her chronic pain management doctor regarding her exacerbation of pain which appears related to exerting herself more than usual over the last several weeks. 04/13/18 20:15 CT of the L-spine without any evidence of significant canal stenosis or evidence of cord compression. At this time will discharge with return precautions and follow-up recommendations. Verbal discharge instructions given a the bedside and opportunity for questions given. Medication warnings reviewed. Patient is in agreement with this plan and has verbalized understanding of return precautions and the need for primary care follow-up in the next 24-72 hours. - Vital Signs Vital signs: Temp Pulse Resp BP Pulse Ox 98.6 F 71 18 138/78 H 98 04/13/18 21:34 04/13/18 21:34 04/13/18 21:34 04/13/18 21:34 04/13/18 21:34 - Diagnostic Test Radiology reviewed: Reports reviewed Discharge - Discharge Clinical Impression: Acute exacerbation of chronic low back pain Opiate dependence Qualifiers: Substance use status: uncomplicated Qualified Code(s): F11.20 - Opioid dependence, uncomplicated Condition: Good Disposition: HOME, SELF-CARE Additional Instructions: You have been seen in the Emergency Department (ED) today for back pain. Your workup and exam have not shown any acute abnormalities and you are likely suffering from muscle strain or possible problems with your discs, but there is no treatment that will fix your symptoms at this time. Please take the naproxen that has been prescribed as directed. You should also purchase a local lidocaine cream such as "aspercreme with lidocaine" and use per bottle instructions to the affected area. Apply heat to the area as often as you are able. Continue to keep active and avoid prolonged periods of bed rest. The CT scan of your lumbar spine does not show any acute findings and the report has been included in your discharge paperwork. Please follow up with your doctor as soon as possible regarding today's ED visit and your back pain. Return to the ED for worsening back pain, fever, weakness or numbness of either leg, or if you develop either (1) an inability to urinate or have bowel movements, or (2) loss of your ability to control your bathroom functions (if you start having "accidents"), or if you develop other new symptoms that concern you.concern you. Prescriptions: Naproxen 500 mg PO BID #60 tablet
--- NOTE | 2018-04-13 19:49 | RADIOLOGY REPORT (SQ) ---
EXAM DESCRIPTION: CT LUMBAR SPINE WITHOUT COMPLETED DATE/TIME: 04/13/2018 7:11 pm REASON FOR STUDY: acute low back pain COMPARISON: None. TECHNIQUE: Axial images acquired through the lumbar spine without intravenous contrast. Images revi ewed with lung, soft tissue and bone windows. Reconstructed coronal and sagittal MPR images reviewed . All images stored on PACS. All CT scanners at this facility use dose modulation, iterative reconstruction, and/or weight based d osing when appropriate to reduce radiation dose to as low as reasonably achievable (ALARA). [facility]: Dose Right [facility]: CareDose [facility]: Dose Right [facility]: Teradose 4D [facility]: [employer] RADIATION DOSE: mGy. LIMITATIONS: None. FINDINGS: SEGMENTATION: Normal. No transitional anatomy. ALIGNMENT: Normal. VERTEBRAL BODIES: No fractures. No dislocation. No acute findings. DISCS: There is a shallow disc/ osteophyte complex at L4-5. This is encroaches upon the inferior rec ess of the left neural foramen. There is no evidence of nerve entrapment. Evaluation is limited by lack of contrast. PEDICLES, TRANSVERSE PROCESSES: No fractures. No dislocation. No acute findings. FACETS, POSTERIOR ELEMENTS: No fractures. No dislocation. No spinal stenosis. HARDWARE: None in the spine. VISUALIZED RIBS: No fractures. SOFT TISSUES: No significant or acute finding in adjacent soft tissues. OTHER: No other significant finding. IMPRESSION: Shallow disc/ osteophyte complex at L4-5 with no significant central canal or foraminal stenosis. TECHNICAL DOCUMENTATION: JOB ID: [id number] Quality ID # [id number]: Final reports with documentation of one or more dose reduction techniques (e.g., Au tomated exposure control, adjustment of the mA and/or kV according to patient size, use of iterative reconstruction technique) 2010 [employer]- All Rights Reserved Reading location - IP/workstation name: [email or web address]
[2018-04-13] MEDS ORDERED: HYDROMORPHONE HCL INJ/PF 2 MG/ML AMPULE IV PRN (20:53)
[2018-04-13 22:07] VITALS: BP 138/78
== END 2018-04-13 21:45 | disposition home or self-care (01) ==
LOC: ER 17:06
DX: G89.29 Other chronic pain (principal); M54.5 Low back pain; F11.20 Opioid dependence, uncomplicated; F17.200 Nicotine dependence, unspecified, uncomplicated; Z90.49 Acquired absence of other specified parts of digestive tract
CPT/HCPCS: 96376; 99284; 96374; 96375; 72131; J3360; J1885; J1170; J2405

== ENCOUNTER → 2018-05-27 | Outpatient (CLI) | payer MEDICARE, MEDICAID ==
--- NOTE | 2018-05-27 12:01 | RADIOLOGY REPORT (SQ) ---
EXAM DESCRIPTION: CT HEAD WITHOUT COMPLETED DATE/TIME: 05/27/2018 11:33 am REASON FOR STUDY: VISION DISTURBANCES R51 HEADACHE COMPARISON: None. TECHNIQUE: Axial images acquired through the brain without intravenous contrast. Images reviewed wi th bone, brain and subdural windows. Additional sagittal and coronal reconstructions were generated. Images stored on PACS. All CT scanners at this facility use dose modulation, iterative reconstruction, and/or weight based d osing when appropriate to reduce radiation dose to as low as reasonably achievable (ALARA). [facility]: Dose Right [facility]: CareDose [facility]: Dose Right [facility]: Teradose 4D [facility]: [employer] RADIATION DOSE: CT Rad equipment meets quality standard of care and radiation dose reduction techniq ues were employed. CTDIvol: 53.2 mGy. DLP: 1017 mGy-cm. mGy. LIMITATIONS: None. FINDINGS: VENTRICLES: Normal size and contour. CEREBRUM: No masses. No hemorrhage. No midline shift. No evidence for acute infarction. Normal gra y/white matter differentiation. No areas of low density in the white matter. CEREBELLUM: No masses. No hemorrhage. No alteration of density. No evidence for acute infarction. EXTRAAXIAL SPACES: No fluid collections. No masses. ORBITS AND GLOBE: No intra- or extraconal masses. Normal contour of globe without masses. CALVARIUM: No fracture. PARANASAL SINUSES: No fluid or mucosal thickening. SOFT TISSUES: No mass or hematoma. OTHER: No other significant finding. IMPRESSION: NORMAL BRAIN CT WITHOUT CONTRAST. EVIDENCE OF ACUTE STROKE: NO. COMMENT: Quality ID # [id number]: Final reports with documentation of one or more dose reduction techniques (e.g., Automated exposure control, adjustment of the mA and/or kV according to patient size, use of iterative reconstruction technique) TECHNICAL DOCUMENTATION: JOB ID: [id number] [employer]- All Rights Reserved Reading location - IP/workstation name: [email or web address]
== END ==
LOC: RAD 11:13
PROVIDERS: ATTEND Optometrist
DX: H53.9 Unspecified visual disturbance (principal); H57.12 Ocular pain, left eye
CPT/HCPCS: 70450

== ENCOUNTER 2018-05-29 17:59 | Emergency (ER) | payer MEDICARE, MEDICAID ==
[2018-05-29 18:06] VITALS: BP 148/92
[2018-05-29] MEDS ORDERED: NORMAL SALINE 1000 ML 1,000 ML IV ONE (19:08)
[2018-05-29] MEDS ORDERED: MAGNESIUM SULFATE/D5W 1 GM/100 ML RTUPB IV ONE (19:08)
[2018-05-29] MEDS ORDERED: METOCLOPRAMIDE HCL INJ/PF 10 MG/2 ML SDV IV ONE (19:08)
[2018-05-29] MEDS ORDERED: DEXAMETHASONE SOD PHOS INJ 10 MG/1 ML VIAL IV ONE (19:09)
[2018-05-29] MEDS ORDERED: KETOROLAC TROMETHAMINE INJ/PF 30 MG/1 ML SDV IV ONE (19:09)
--- NOTE | 2018-05-29 19:13 | ER Document Report ---
ED Medical Screen (RME) - General Chief Complaint: Headache Stated Complaint: HEADACHES Time Seen by Provider: 05/29/18 18:53 Notes: Patient is a 43-year-old female with history of migraines that presents to the emergency department for chief complaint of headache. Patient reports having these headaches over the last 2 weeks, the last all day, and occasionally will come and go, she describes having almost 15 headaches a day, has taken Fioricet , and ibuprofen without relief. ROS: Other than noted above, the 12 point review of systems was reviewed with the patient and were negative, all pertinent findings are included in the HPI. PHYSICAL EXAMINATION: Vital signs reviewed. GENERAL: Well-appearing, well-nourished and in no acute distress. HEAD: Atraumatic, normocephalic. EYES: Pupils equal round extraocular movements intact, conjunctiva are normal. ENT: Nares patent NECK: Normal range of motion CV: Heart regular rate and rhythm LUNGS: No respiratory distress Musculoskeletal: Normal range of motion NEUROLOGICAL: Normal speech PSYCH: Normal mood, normal affect. MDM: Patient seen and examined for rapid initial assessment. Vital signs reviewed. A comprehensive ED assessment and evaluation of the patient, analysis of test results and completion of the medical decision making process will be conducted by additional ED providers. *Note is created using voice recognition software and may contain spelling, syntax or grammatical errors. TRAVEL OUTSIDE OF THE [place] IN LAST 30 DAYS: No - Related Data Allergies/Adverse Reactions: No Known Allergies Allergy (Verified 12/29/17 08:43) Past Medical History - Social History Chew tobacco use (# tins/day): No Frequency of alcohol use: None Drug Abuse: None - Past Medical History Cardiac Medical History: Denies: Hx Coronary Artery Disease, Hx Heart Attack, Hx Hypertension Pulmonary Medical History: Reports: Hx COPD, Hx Pneumonia, Hx Sleep Apnea Denies: Hx Asthma, Hx Bronchitis Neurological Medical History: Denies: Hx Cerebrovascular Accident, Hx Seizures Renal/ Medical History: Denies: Hx Peritoneal Dialysis Musculoskeltal Medical History: Reports Hx Arthritis - Spine and knees, Reports Hx Musculoskeletal Trauma Psychiatric Medical History: Reports: Hx Depression Past Surgical History: Reports: Hx Cholecystectomy, Hx Orthopedic Surgery - 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, Hx Tubal Ligation - Immunizations Hx Diphtheria, Pertussis, Tetanus Vaccination: Yes Physical Exam - Vital signs Vitals: Temp Pulse Resp BP Pulse Ox 99.8 F 91 12 148/92 H 96 05/29/18 18:04 05/29/18 18:04 05/29/18 18:04 05/29/18 18:04 05/29/18 18:04 Course - Vital Signs Vital signs: Temp Pulse Resp BP Pulse Ox 99.8 F 91 12 148/92 H 96 05/29/18 18:04 05/29/18 18:04 05/29/18 18:04 05/29/18 18:04 05/29/18 18:04 Doctor's Discharge - Discharge Referrals: MARCELO ACOSTA OD [Primary Care Provider] - Follow up as needed
--- NOTE | 2018-05-29 20:38 | ER Document Report ---
ED Headache - General Mode of Arrival: Ambulatory Information source: Patient TRAVEL OUTSIDE OF THE [place] IN LAST 30 DAYS: No - HPI Patient complains to provider of: Headache Patient reports: Occasional migraines Onset: Other - 2 weeks Timing: Still present Quality of pain: Sharp Pain Level: 4 Associated symptoms: denies: Confusion, Dizzy, Fever, Lightheaded, Neck pain, Photophobia, Speech problems, Stiff neck Exacerbated by: Movement. denies: Light, Noise Similar symptoms previously: No Recently seen / treated by doctor: Yes - General Chief Complaint: Headache Stated Complaint: HEADACHES Time Seen by Provider: 05/29/18 18:53 Notes: Patient presents complaining of headache pain off and on for the past 2 weeks. Patient states she will have headaches that starts to the right lateral neck and occipital condyle area and radiate to the right side of her head and then over to the left forehead area. Patient denies any head injury. Patient states this headache pain is not typical for migraines. Patient has seen her primary doctor for the same complaint last week. Did have an outpatient CT scan performed yesterday which was patient see her vomiting. Patient reports subjective low-grade fevers. States that her headache pain is worse with movement. Patient states the headache pain will come and go very briefly and at the longest it is only stayed 45 minutes per episode and then resolves. Patient states she will have about 15 episodes of headache pain a day. (KENZIE ROSE) - Related Data Allergies/Adverse Reactions: No Known Allergies Allergy (Verified 12/29/17 08:43) Past Medical History - General Information source: Patient - Social History Smoking Status: Current Every Day Smoker Chew tobacco use (# tins/day): No Smoking Education Provided: Yes Frequency of alcohol use: None Drug Abuse: None Occupation: None Lives with: Family Family History: Reviewed & Not Pertinent Patient has suicidal ideation: No Patient has homicidal ideation: No - Past Medical History Cardiac Medical History: Denies: Hx Coronary Artery Disease, Hx Heart Attack, Hx Hypertension Pulmonary Medical History: Reports: Hx Pneumonia, Hx Sleep Apnea Neurological Medical History: Denies: Hx Cerebrovascular Accident, Hx Seizures Renal/ Medical History: Denies: Hx Peritoneal Dialysis Musculoskeletal Medical History: Reports Hx Arthritis - Spine and knees, Reports Hx Musculoskeletal Trauma Psychiatric Medical History: Reports: Hx Depression Past Surgical History: Reports: Hx Cholecystectomy, Hx Orthopedic Surgery - 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 denies: Fever EENT: No symptoms reported. denies: Blurred vision, Double vision, Ear pain Cardiovascular: No symptoms reported. denies: Chest pain, Dizziness Respiratory: No symptoms reported. denies: Cough Gastrointestinal: No symptoms reported. denies: Nausea, Vomiting Genitourinary: No symptoms reported Female Genitourinary: No symptoms reported Musculoskeletal: No symptoms reported Skin: No symptoms reported. denies: Rash Hematologic/Lymphatic: No symptoms reported Neurological/Psychological: Headaches. denies: Confusion, Weakness Physical Exam - General General appearance: Appears well, Alert In distress: None - HEENT Head: Normocephalic, Atraumatic Eyes: Normal Conjunctiva: Normal Extraocular movements intact: Yes Eyelashes: Normal Pupils: PERRL Fundascopic: Normal. No: Retinal detachment, Retinal hemorrhage Ears: Normal Nasal: Normal Mouth/Lips: Normal Pharynx: Normal Neck: Normal, Supple. No: Lymphadenopathy, Meningismus - Respiratory Respiratory status: No respiratory distress Chest status: Nontender Breath sounds: Normal Chest palpation: Normal - Cardiovascular Rhythm: Regular Heart sounds: S1 appreciated, S2 appreciated Murmur: No - Back Back: Normal, Nontender. No: Vertebra tenderness - Extremities General upper extremity: Normal inspection, Normal ROM General lower extremity: Normal inspection, Normal ROM - Neurological Neuro grossly intact: Yes Cognition: Normal Ralph Coma Scale Eye Opening: Spontaneous Ralph Coma Scale Verbal: Oriented [place] Coma Scale Motor: Obeys Commands Ralph Coma Scale Total: 15 - Psychological Associated symptoms: Normal affect, Normal mood - Skin Skin Temperature: Warm Skin Moisture: Dry Skin Color: Normal - Vital signs Vitals: Temp Pulse Resp BP Pulse Ox 99.8 F 91 12 148/92 H 96 05/29/18 18:04 05/29/18 18:04 05/29/18 18:04 05/29/18 18:04 05/29/18 18:04 Course - Diagnostic Test Radiology reviewed: Reports reviewed - Reviewed noncontrasted CT scan report from yesterday - Re-evaluation Re-evalutation: 05/29/18 20:[address] Malcolm regarding patient presentation and diagnostic evaluation. Recommends adding on CTA of the head and neck to rule out aneurysm 11/19/18 22:33 Patient reports that she is continued to occasionally get the headaches. Patient's IV fluids are still infusing at this time. Patient is agreeable to wait for infusion to be complete. Patient did drive here and has 2 small children with her, therefore we are limited with what medications that we can safely give her. CT scan reports reviewed as well as noncontrasted CT scan that was performed. No concern for mass, hemorrhage or aneurysm. 05/29/18 23:27 Patient states that she is still occasionally getting headaches but is requesting be discharged at this time. Patient does not want to wait for the rest of her IV infusion to go in. 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 The patient is neurologically intact. Given the extremely low risk of these diagnoses further testing and evaluation for these possibilities does not appear to be indicated at this time. The patient has been instructed to return if the symptoms worsen or change in any way. (KENZIE ROSE) Physician Attestation: I personally and independently obtained patient history and examined the patient in conjunction with the APC and agree with the assessment, treatment plan and disposition of the patient as recorded by the APC, and have reviewed the APC's note. HISTORY OF PRESENT ILLNESS: Patient is a 43-year-old female with history of migraines that presents to the emergency department for chief complaint of headaches. Patient reports having short intermittent headaches, lasting up to 30 minutes at a time, describes as the back right portion of her neck, sharp stabbing type pain, that is tender to palpate at times, this is been going on for approximately 2 weeks, different from her prior migraines. ROS: Constitutional: Negative for fever. Cardiovascular: Negative for chest pain. Respiratory: Negative for shortness of breath. Gastrointestinal: Negative for vomiting or abdominal pain Musculoskeletal: Negative for arm, leg or back pain Skin: Negative for rash. Neurological: Negative for weakness or numbness. Other than noted above, the 12 point review of systems was reviewed with the patient and were negative, all pertinent findings are included in the HPI. PHYSICAL EXAMINATION: Vital signs reviewed, nursing noted reviewed. GENERAL: Well-appearing, well-nourished and appears uncomfortable HEAD: Atraumatic, normocephalic. EYES: Eyes appear normal, conjunctiva are normal. ENT: nares patent, oropharynx clear without exudates. Moist mucous membranes. NECK: Normal range of motion, supple without lymphadenopathy, tenderness over the right cervical paraspinal musculature. No erythema, or warmth noted. No midline tenderness. LUNGS: Breath sounds clear to auscultation bilaterally and equal. No wheezes rales or rhonchi. HEART: Regular rate and rhythm without murmurs ABDOMEN: Soft, nontender, normoactive bowel sounds. No rebound, guarding, or rigidity. No masses appreciated. EXTREMITIES: Nontender, good range of motion, no pitting or edema. NEUROLOGICAL: No focal neurological deficits. Moves all extremities spontaneously Motor and sensory grossly intact on exam. PSYCH: Normal mood, normal affect. SKIN: Warm, Dry, normal turgor, no rashes or lesions noted on exposed MEDICAL DECISION MAKING: Patient was treated with migraine cocktail, she did have 2 children, that she was unable to get an additional ride home, therefore treatment options were limited, given nature of her headaches, and new pattern, and persistence of them , we did decide to obtain CT imaging, to evaluate for possible intracranial causes of her headaches, with a CT of the brain, and this was negative, and unremarkable. Her headaches did seem most consistent with an occipital migraine , she will likely need follow-up with her primary care physician and possible neurology for further management. Please review detail APC documentation. *Note is created using voice recognition software and may contain spelling, syntax or grammatical errors. 05/30/18 09:51 (MARIA TERESA MALCOLM) - Vital Signs Vital signs: Temp Pulse Resp BP Pulse Ox 99.8 F 91 12 148/92 H 96 05/29/18 18:04 05/29/18 18:04 05/29/18 18:04 05/29/18 18:04 05/29/18 18:04 Discharge - Discharge Clinical Impression: Headache Qualifiers: Headache type: unspecified Headache chronicity pattern: episodic headache Intractability: not intractable Qualified Code(s): R51 - Headache Condition: Stable Disposition: ADMITTED INPATIENT Instructions: Headache ([facility]), Muscle Relaxers ([facility]) Additional Instructions: Return immediately for any new or worsening symptoms Followup with your primary care provider, call tomorrow to make a followup appointment Follow-up with a neurologist for further evaluation of your headaches, call tomorrow for an appointment Prescriptions: Cyclobenzaprine HCl [Flexeril 10 Mg Tablet] 10 mg PO TID #15 tablet Naproxen [Naprosyn 250 Nmg Tablet] 1 tab PO BID #14 tablet Forms: Smoking Cessation Education Referrals: MARCELO ACOSTA OD [Primary Care Provider] - Follow up as needed JASSON KRISHNAN MD [NO LOCAL MD] - Follow up tomorrow
--- NOTE | 2018-05-29 22:00 | RADIOLOGY REPORT (SQ) ---
PROCEDURE: CT ANGIOGRAPHY OF THE HEAD AND CT ANGIOGRAPHY OF THE NECK CLINICAL HISTORY: occipital FREITAS INDICATION: Same as above Comparison: Noncontrast CT of the head done on the same day TECHNIQUE: The study was completed on 05/29/2018 at 9:[address] angiography of the head and neck was done with intravenous contrast followed by 3-D rendering of the intracranial and neck arterial vasculature. NASCET Criteria was utilized for evaluation of potential vascular stenosis in the brain and the neck The patient was injected with radiographic contrast intravenously, without any documented immediate adverse reactions. This exam was performed according to our departmental dose-optimization program, which includes automated exposure control, adjustment of the mA and/or KV according to the patient's size and/or use of iterative reconstruction technique. FINDINGS: CTA OF THE HEAD: There is no evidence of hemodynamically significant stenosis or a focal aneurysm formation in the visualized intracranial portion the bilateral internal carotid arteries, carotid siphon region, bilateral anterior, middle and posterior cerebral arteries and their branches. The basilar tip is normal. Antegrade flow is seen in vertebral artery. The right vertebral is the dominant of the two vertebral arteries. Limited evaluation of the superior sagittal sinus, vein of Eric region, torcula, straight sinus, bilateral internal cerebral veins and the jugular foramina bilaterally do not show any gross abnormalities. CTA OF THE NECK: There is no evidence of hemodynamically significant stenosis or a focal aneurysm formation in the bilateral common carotid and the bilateral internal carotid arteries. The region of the right and left carotid bulb is unremarkable. Antegrade flow is seen in the bilateral vertebral arteries. The right vertebral is the dominant of the two vertebral arteries. The takeoff of the great vessels from the aortic arch region is unremarkable. The visualized cervical spine shows multilevel mild degenerative change . The prevertebral soft tissues unremarkable. The laryngotracheal airway is widely patent. The visualized lung apices are unremarkable . IMPRESSION: Unremarkable CT angiography of the brain. Unremarkable CT angiography of the neck Place of interpretation: [facility].
== END 2018-05-30 00:14 | disposition other institution (70) ==
LOC: ER 17:59
DX: R51 Headache (principal); M54.2 Cervicalgia; F17.200 Nicotine dependence, unspecified, uncomplicated; I10 Essential (primary) hypertension; Z79.899 Other long term (current) drug therapy
CPT/HCPCS: 99285; 96375; 96365; 70496; 70498; J1885; J2765; J3475; J7030; J1100

== ENCOUNTER → 2019-05-09 | Outpatient (CLI) | payer MEDICARE, MEDICAID ==
[2019-05-09 14:43] LABS: ANION GAP 11 (5-19); BLOOD UREA NITROGEN 11 mg/dL (7-20); CALCIUM 9.4 mg/dL (8.4-10.2); CARBON DIOXIDE 22 mmol/L (22-30); CHLORIDE 103 mmol/L (98-107); GLUCOSE 113 mg/dL (75-110); POTASSIUM 4.3 mmol/L (3.6-5.0)
== END ==
LOC: OD 13:26
PROVIDERS: ATTEND Family Medicine Geriatric Medicine
DX: I10 Essential (primary) hypertension (principal); Z79.899 Other long term (current) drug therapy
CPT/HCPCS: 36415; 80048